=== PATIENT | male | born 1985 ===

== ENCOUNTER 2020-08-29 11:21 | Outpatient (REF) | payer OTHER, SELFPAY ==
[2020-08-29 11:52] LABS: COVID-19 Test Negative (Negative)
== END 2020-08-29 11:22 | disposition home or self-care (01) ==
LOC: HO.LAB 11:21
PROVIDERS: PCP Internal Medicine; Visit Provider Internal Medicine
DX: Z20.828 Contact with and (suspected) exposure to other viral communicable diseases (principal)
CPT/HCPCS: 87635

== ENCOUNTER 2020-10-06 15:26 | Emergency (ER) | payer OTHER, MEDICAID, SELFPAY ==
--- NOTE | 2020-10-06 | US_ITS ---
EXAMINATION: US SCROTUM See ultrasound scrotum Doppler report
[2020-10-06 16:01] VITALS: BP 147/87; PULSE 92; RESP 18; TEMP 36.9; O2SAT 98; BMI 27.8
--- NOTE | 2020-10-06 16:15 | CT_ITS ---
EXAMINATION: CT ABDOMEN AND PELVIS WITHOUT CONTRAST CLINICAL INFORMATION: Right-sided abdominal and testicular pain COMPARISON: None TECHNIQUE: Multidetector volumetric imaging was performed from the superior aspect of the liver through the pubic symphysis. Sagittal and coronal reformatted images were obtained on the technologist's workstation. This CT examination was performed using dose optimization techniques as appropriate, variously including the following: *Automated exposure control *Adjustment of mA and/or kV according to patient size (this includes techniques or standardized protocols for targeted exams where dose is matched to indication/reason for exam; i.e. extremities or head) *Use of iterative reconstruction technique DLP: 581 mGy-cm FINDINGS: LUNG BASES: The visualized lung bases are unremarkable. LIVER, GALLBLADDER, AND BILIARY TREE: The liver is normal in size, shape, and attenuation. No focal hepatic lesion or biliary ductal dilatation is present. The gallbladder is unremarkable with no evidence of radiopaque gallstones, gallbladder wall thickening, or obvious pericholecystic inflammatory changes. PANCREAS: Unremarkable. SPLEEN: Unremarkable. ADRENAL GLANDS: Unremarkable. KIDNEYS AND URETERS: The kidneys are normal in size, shape, and attenuation. No hydronephrosis, hydroureter, or calculi seen. No perinephric stranding. BLADDER: Unremarkable. GASTROINTESTINAL TRACT: There is diverticulosis of the colon. No evidence of diverticulitis is seen. The small and large bowel are otherwise unremarkable. The appendix is unremarkable. ABDOMINAL WALL: No significant hernia is appreciated. LYMPH NODES: Normal. VASCULAR: Unremarkable. PELVIC VISCERA: Unremarkable. OSSEOUS STRUCTURES: Unremarkable. CT/CT abdomen pelvis wo con IMPRESSION: No significant abnormality.
--- NOTE | 2020-10-06 16:15 | US_ITS ---
EXAMINATION: US SCROTUM CLINICAL INFORMATION: Right testicular pain. Rule out torsion.. COMPARISON: CT abdomen pelvis same day. TECHNIQUE: A sonogram of the scrotum was performed assessing kimbrough-scale appearance and color Doppler flow. Spectral Doppler analysis of the arterial and venous flow were performed in the testes bilaterally. FINDINGS: RIGHT: Right testicle measures 4.4 x 2.2 x 3.3 cm, volume 17 mL. No focal testicular parenchymal lesions are visualized. Spectral Doppler analysis of the arterial and venous flow is normal in the right testis. Right epididymal head is normal in size. No right hydrocele or varicocele is seen. Right epididymal Doppler flow is normal. LEFT: Left testicle measures 4.4 x 2.0 x 3.2 cm, volume 15 mL. No focal testicular parenchymal lesions are visualized. Spectral Doppler analysis of the arterial and venous flow is normal in the left testis. Left epididymal head is normal in size. No left hydrocele or varicocele is seen. Left epididymal Doppler flow is normal. US/US scrotum doppler IMPRESSION: Symmetrically sized testicles demonstrating normal arterial and venous waveforms.
--- NOTE | 2020-10-06 16:18 | ED.MALEGU ---
HPI - Male Genitourinary General Chief complaint: Urogenital-Male Stated complaint: testicular pain Time Seen by Provider: 10/06/20 16:15 Source: patient and contact center associate Mode of arrival: ambulatory Limitations: no limitations History of Present Illness HPI Narrative: a 35-year-old male who presented to the hospital with right testicular pain started since yesterday, patient declined any trauma, pain started yesterday as right lower back pain radiating to the right groin area and going down to the right thigh, described the pain as severe 10/10, dull, worsening with movement of the right leg or the body drunk, relieved by nothing, pain was radiating as described to right testicle and right thigh, no other associated symptoms in particular no nausea, no vomiting, no fever. Related Data Allergies Allergy/AdvReac Type Severity Reaction Status Date / Time No Known Allergies Allergy Unverified 08/03/20 19:44 [No Known Allergies*] Review of Systems Review of Systems: All other systems are reviewed and are negative Constitutional: Reports as per HPI and Reports no additional constitutional complaints Eyes: Reports as per HPI and Reports no additional eye complaints Reports system reviewed and no additional complaints, except as documented Cardiovascular: Reports as per HPI and Reports no additional cardiovascular complaints Respiratory: Reports as per HPI and Reports no additional respiratory complaints Gastrointestinal: Reports as per HPI and Reports no additional gastrointestinal complaints Genitourinary: Reports no additional female genitourinary complaints Musculoskeletal: Reports no additional musculoskeletal complaints Skin/Breast: Reports system reviewed and no additional complaints, except as docu Psychiatric: Reports no additional psychiatric complaints Endocrine: Reports no additional endocrine complaints Hematologic/Lymphatic: Reports no additional hematologic/lymphatic complaints Allergic/Immunologic: Reports no additional allergic/immunologic complaints Reports system reviewed and no additional complaints, except as documented and Reports Abnormal speech present Yes all other systems are reviewed and are negative, unobtainable due to endotracheal tube, Unobtainable due to mental condition, Unobtainable due to mental status and Other PMFSH Past Medical History Medical History No known health problems Social History Social History Alcohol intake: never Smoking Status: Former smoker Use of substances other than those prescribed or required for medical reasons: No Advance Directives: No Advance Directives Information Provided: Yes Physical Exam Vital Signs: Vital Signs: Last Vital Signs Temp 98.2 F 10/06/20 17: Pulse 100 10/06/20 17:01 Resp 18 10/06/20 17: BP 127/77 10/06/20 17:01 Pulse Ox 97 10/06/20 17:01 Body Mass Index 27.8 vital signs have been reviewed as normal and appeared to be correct. Blood pressure in the high range. Heart rate normal. Respiration rate normal. Temperature normal. Oxygen saturation normal. Appearance: Alert. Oriented X3. No acute distress. Head: Normal external exam. Normocephalic. Atraumatic. No Tamayo signs noted. No raccoon eyes noted Eyes: PERRLA. EOMI. Conjunctiva and sclera normal. Eyelids normal. ENT: EAC normal. TM's Normal. Pharynx normal. Uvula midline. Moist mucous membranes. No trismus noted. No drooling noted. No muffled voice noted. Neck: Normal inspection. Neck supple. FROM. No adenopathy. Thyroid Normal. No meningeal signs. No neck mass noted. CVS: Normal heart rate and rhythm. Heart sound normal. No murmurs noted. Pulses normal throughout. Respiratory: No respiratory distress. Painless inspiration. Breath sounds normal. No wheezes/rales/rhonchi noted. Chest nontender. No accessory muscle usage noted or decreased air movement noted. Abdomen: Soft and nontender. Bowel sounds normal in all 4 quadrants. No distention noted. No organomegaly noted. No visible injury noted. Back: Right CVA tenderness. Full range of motion noted. Skin: Skin warm and dry. Normal skin color. Normal skin turgor. No rashes/lesions/lacerations noted. Extremities: No lower extremity edema. Extremities exhibit normal range of motion. Extremities nontender. Neuro: Oriented X 3. No motor deficit. No sensory deficit. Reflexes normal. : Scrotum is normal inspection, testicle both descended, positive cremaster reflex, no testicular masses. No redness or hotness over the scrotum. MDM - Male Genitourinary MDM Narrative Medical decision making narrative: Assessment and plan. 35-year-old male presented with right-sided lower abdominal pain/right-sided testicular pain, patient not sexually active and declined risk for STDs, patient also declined UTI symptoms, no penile discharge, labs were unremarkable today including UA and CBC, patient had a CT of the abdomen and pelvis to rule out right kidney stones which is negative for kidney stones, right testicular ultrasound is negative for testicular torsion or any other scrotal pathology. This point finding were discussed with the patient and was instructed to take ibuprofen OTC, and follow up with PCP, patient was instructed to return if pain recurrent or any other symptoms like fever or chills. Patient has no pain after was given Toradol IV in the emergency department. Lab Data Result diagrams: 10/06/20 16:24 10/06/20 16:24 Labs: Lab Results 10/06/20 10/06/20 10/06/20 Range/Units 16:24 16:24 18:22 WBC 9.7 (4.8-10.8) X10*3/uL RBC 4.78 (4.60-5.80) X10*6/uL Hgb 14.2 (14.0-18.0) g/dl Hct 42.1 (42-52) % MCV 88.1 (80-98) fL MCH 29.7 (27.0-33.0) pg MCHC 33.7 (31.0-36.0) g/dl RDW 12.6 (11.0-16.0) % Plt Count 397 (160-400) X10*3/uL MPV 9.3 L (9.4-12.4) fL Immature Gran % (Auto) 0.2 (0.0-0.4) % Neut % (Auto) 65.2 (45-73) % Lymph % (Auto) 26.4 (20-40) % [place] % (Auto) 7.7 (2-11) % Eos % (Auto) 0.3 (0-4) % Baso % (Auto) 0.2 (0-2) % Lymph # (Auto) 2.6 (1.2-4.9) X10*3/uL [place] # (Auto) 0.7 (0.1-1.2) X10*3/uL Eos # (Auto) 0.0 (0.0-0.4) X10*3/uL Baso # (Auto) 0.0 (0.0-0.2) X10*3/uL Abs Immat Gran (auto) 0.02 (0.00-0.03) X10*3/uL Absolute Neuts (auto) 6.3 (2.0-8.3) X10*3/uL Absolute Nucleated RBC 0.000 (0.0-0.012) X10*3/uL Nucleated RBC % (auto) 0.0 (0.0-0.2) /100WBC Sodium 137 (135-145) mmol/L Potassium 4.2 (3.3-5.1) mmol/l Chloride 101 (96-108) mmol/L Carbon Dioxide 24 (22-29) mmol/L Anion Gap 16 (12-20) BUN 16 (9-16) mg/dL Creatinine 1.03 (0.5-1.4) mg/dL Estim Creat Clear Calc 106.1 Estimated GFR > 60 Random Glucose 80 (60-115) mg/dL Calcium 9.3 (8.4-10.2) mg/dL Total Bilirubin 0.6 (0.0-1.0) mg/dL Direct Bilirubin 0.2 (0.0-0.5) mg/dL AST 27 (5-37) U/L ALT 46 H (0-40) U/L Alkaline Phosphatase 63 (39-117) U/L Total Protein 7.7 (6.5-8.0) g/dL Albumin 4.9 (3.5-5.0) g/dL Lipase 38 (8-78) U/L Urine Color YELLOW Urine Appearance CLEAR Urine pH 6.0 (5.0-8.0) Ur Specific [place] 1.025 (1.005-1.025) Urine Protein NEG (NEG-TRACE) MG/DL Urine Glucose (UA) NEG (NEG) MG/DL Urine Ketones 5 (NEG) MG/DL Urine Blood NEG (NEG) Urine Nitrite NEG (NEG) Ur Leukocyte Esterase NEG (NEG) Imaging Data CT scan - abdomen: Radiologist's impression: Unremarkable study. Testicular ultrasound: Radiologist's impression: Unremarkable scrotal ultrasound.
[2020-10-06 16:30] LABS: MANUAL DIFF FLAG NO
[2020-10-06 16:31] LABS: Basophils Percent Auto 0.2 % (0-2); Eosinophils Percent Auto 0.3 % (0-4); Hematocrit 42.1 % (42-52); Hemoglobin 14.2 g/dl (14.0-18.0); Imm Gran Abs Auto 0.02 X10*3/uL (0.00-0.03); Imm Gran Pct Auto 0.2 % (0.0-0.4); Lymphocytes Absolute Auto 2.6 X10*3/uL (1.2-4.9); Lymphocytes Percent Auto 26.4 % (20-40); Mean Corpuscular HGB Conc 33.7 g/dl (31.0-36.0); Mean Corpuscular Hemoglobin 29.7 pg (27.0-33.0); Mean Corpuscular Volume 88.1 fL (80-98); Mean Platelet Volume 9.3 fL (9.4-12.4); Monocytes Absolute Auto 0.7 X10*3/uL (0.1-1.2); Monocytes Percent Auto 7.7 % (2-11); Neutrophils Absolute Auto 6.3 X10*3/uL (2.0-8.3); Neutrophils Percent Auto 65.2 % (45-73); Platelet Count 397 X10*3/uL (160-400); Red Blood Count 4.78 X10*6/uL (4.60-5.80); Red Cell Distribution Width 12.6 % (11.0-16.0); White Blood Count 9.7 X10*3/uL (4.8-10.8)
[2020-10-06] MEDS: Ketorolac Tromethamine 15 MG/ML VIAL IV (16:31)
[2020-10-06] MEDS: 0.9 % Sodium Chloride 500 ML 1000 ML IV (16:31)
[2020-10-06] MEDS: Morphine Sulfate 2 MG/ML CARTRIDGE 1 MG IVPUSH (16:31)
[2020-10-06 17:01] VITALS: BP 127/77; PULSE 100; RESP 18; TEMP 36.8; O2SAT 97
[2020-10-06 17:06] LABS: Alanine Aminotransferase 46 U/L (0-40); Albumin Level 4.9 g/dL (3.5-5.0); Alkaline Phosphatase 63 U/L (39-117); Anion Gap 16 (12-20); Aspartate Amino Transferase 27 U/L (5-37); Bilirubin Direct 0.2 mg/dL (0.0-0.5); Bilirubin Total 0.6 mg/dL (0.0-1.0); Blood Urea Nitrogen 16 mg/dL (9-16); Calcium 9.3 mg/dL (8.4-10.2); Carbon Dioxide 24 mmol/L (22-29); Chloride 101 mmol/L (96-108); Creatinine Clr Calc Pharmacy 106.1; Estimated Glomerular Filt Rate > 60; Glucose Random 80 mg/dL (60-115); Lipase 38 U/L (8-78); Potassium 4.2 mmol/l (3.3-5.1); Sodium 137 mmol/L (135-145); Total Protein 7.7 g/dL (6.5-8.0)
[2020-10-06 18:33] LABS: Glucose Urine UA NEG (NEG); Leukocyte Esterase Urine NEG (NEG); Nitrite Urine NEG (NEG); Specific Gravity - Urine 1.025 (1.005-1.025); Urine Blood NEG (NEG); Urine Ketones 5 MG/DL (NEG); Urine Protein NEG (NEG-TRACE)
[2020-10-06 18:34] LABS: Appearance Urine CLEAR; Color Urine YELLOW
== END 2020-10-06 19:57 | disposition home or self-care (01) ==
PROVIDERS: Emergency Provider Emergency Medicine
DX: N50.819 Testicular pain, unspecified (principal); M54.5 Low back pain; R10.9 Unspecified abdominal pain; Z87.891 Personal history of nicotine dependence
CPT/HCPCS: 36415; 74176; 76870; 80048; 80076; 81003; 83690; 85025; 93975; 96374; 96375; 99283; 99284; J1885; J2270

== ENCOUNTER 2020-10-31 11:20 | Outpatient (REF) | payer OTHER, SELFPAY | END 2020-10-31 11:21 | disposition home or self-care (01) | LOC: HO.LAB 11:20 | PROVIDERS: Visit Provider Internal Medicine | DX: Z20.828 Contact with and (suspected) exposure to other viral communicable diseases (principal) | CPT/HCPCS: C9803; U0003 ==

== ENCOUNTER 2020-11-28 12:34 | Outpatient (REF) | payer OTHER, SELFPAY ==
[2020-11-28 12:58] LABS: COVID-19 Test Negative (Negative)
== END 2020-11-28 12:35 | disposition home or self-care (01) ==
LOC: HO.EMPCOV 12:34
PROVIDERS: Visit Provider Internal Medicine
DX: Z20.822 Contact with and (suspected) exposure to COVID-19 (principal)
CPT/HCPCS: 36415; 87635; C9803

== ENCOUNTER 2021-11-12 08:43 | Outpatient (REF) | payer OTHER, SELFPAY ==
[2021-11-12 10:07] LABS: MANUAL DIFF FLAG NO
[2021-11-12 10:13] LABS: Basophils Percent Auto 0.3 % (0-2); Eosinophils Absolute Auto 0.1 X10*3/uL (0.0-0.4); Eosinophils Percent Auto 1.1 % (0-4); Hematocrit 44.9 % (42.0-52.0); Hemoglobin 14.5 g/dl (14.0-18.0); Imm Gran Abs Auto 0.02 X10*3/uL (0.00-0.03); Imm Gran Pct Auto 0.3 % (0.0-0.4); Lymphocytes Absolute Auto 2.2 X10*3/uL (1.2-4.9); Lymphocytes Percent Auto 29.5 % (20-40); Mean Corpuscular HGB Conc 32.3 g/dl (31.0-36.0); Mean Corpuscular Hemoglobin 29.5 pg (27.0-33.0); Mean Corpuscular Volume 91.3 fL (80.0-98.0); Mean Platelet Volume 9.3 fL (9.4-12.4); Monocytes Absolute Auto 0.7 X10*3/uL (0.1-1.2); Monocytes Percent Auto 9.5 % (2-11); Neutrophils Absolute Auto 4.5 x10*3/uL (2.0-8.3); Neutrophils Percent Auto 59.3 % (45-73); Platelet Count 403 X10*3/uL (160-400); Red Blood Count 4.92 X10*6/uL (4.60-5.80); Red Cell Distribution Width 12.8 % (11.0-16.0); White Blood Count 7.6 X10*3/uL (4.8-10.8)
[2021-11-12 11:37] LABS: Alanine Aminotransferase 38 U/L (0-40); Albumin Level 4.8 g/dL (3.5-5.0); Alkaline Phosphatase 76 U/L (39-117); Anion Gap 11 (12-20); Aspartate Amino Transferase 25 U/L (5-37); Bilirubin Total 0.3 mg/dL (0.0-1.0); Blood Urea Nitrogen 12 mg/dL (9-16); Calcium 9.9 mg/dL (8.4-10.2); Carbon Dioxide 28 mmol/L (22-29); Chloride 105 mmol/L (96-108); Cholesterol 242 mg/dL; Estimated Glomerular Filt Rate > 60; Glucose Fasting 104 mg/dL (60-99); HDL Cholesterol 55 mg/dL; LDL Cholesterol Calculated 169 mg/dl; Potassium 4.9 mmol/L (3.3-5.1); Sodium 139 mmol/L (135-145); Total Protein 7.8 g/dL (6.5-8.0); Triglycerides 91 mg/dL
[2021-11-12 12:00] LABS: Thyroid Stimulating Hormone 1.38 uIU/mL (0.32-4.0)
[2021-11-13 10:17] LABS: H Pylori Breath Test Negative (Negative)
[2021-11-16 13:01] LABS: Vitamin D 25-OH, D2 <4 ng/mL; Vitamin D 25-OH, D3 17 ng/mL; Vitamin D 25-OH, Total 17 ng/mL (30-100)
== END 2021-11-12 08:44 | disposition home or self-care (01) ==
LOC: HO.LAB 08:43
PROVIDERS: Absent Provider Internal Medicine; PCP Internal Medicine; Visit Provider Nurse Practitioner Family
DX: R14.0 Abdominal distension (gaseous) (principal); K59.01 Slow transit constipation; K21.9 Gastro-esophageal reflux disease without esophagitis; E78.5 Hyperlipidemia, unspecified; E55.9 Vitamin D deficiency, unspecified; D64.9 Anemia, unspecified
CPT/HCPCS: 36415; 80053; 80061; 82306; 83013; 84443; 85025

== ENCOUNTER → 2022-02-20 13:58 | Outpatient (BNVA) | payer OTHER, SELFPAY | PROVIDERS: PCP Internal Medicine; Referring Provider Internal Medicine; Visit Provider Nurse Practitioner Family | DX: Z13.89 Encounter for screening for other disorder (principal) ==

== ENCOUNTER 2022-06-25 09:29 | Day surgery (SDC) | payer OTHER, SELFPAY ==
[2022-06-20 09:22] VITALS: BMI 25.9
--- NOTE | 2022-06-24 10:18 | HO.ANESPROP2 ---
Documented by User: Carrie Woodard NP 06/24/22 10:18 HPI - Anesthesia Eval Consult details Narrative: 36yo M for Upper Endoscopy and Colonoscopy [facility] Active Problems Active Problems: All Active Problems (Updated 11/28/21 @ 17:20 by Preeti Acosta MD) Dizziness (Acute) Hypovitaminosis D (Acute) Abdominal bloating (Acute) Dyslipidemia (Acute) Constipation by delayed colonic transit (Acute) Past Medical History Medical History Abdominal bloating Constipation by delayed colonic transit COVID-19 Dizziness Dyslipidemia Hypovitaminosis D Family History Family History Father Diabetes Hypertension Mother Hypertension Diabetes Paternal Grandfather Lung cancer Colon cancer Surgical History Surgical History History of esophagogastroduodenoscopy (EGD) History of umbilical hernia repair Social History Social History Housing: House Alcohol intake: never Patient Tobacco Use Status: Never used Tobacco Tobacco use type: Cigarette Cigarette Packs Per Day: 2 e-Cigarette/Vaping Use: Never Used Second Hand Smoke Exposure: No Use of substances other than those prescribed or required for medical reasons: Yes Substance Use Frequency: Occasionally Are you DNR?: No Advance Directives: No Advance Directives Information Provided: Yes service: No Current occupational status: employed Current occupational exposures/hazards: No Meds Allergies Allergy/AdvReac Type Severity Reaction Status Date / Time No Known Allergies Allergy Verified 02/20/22 14:03 [No Known Allergies*] Exam Exam Date and Time: June 24, 2022 1018 Height,Weight and Vital Signs: Height 5 ft 8 in Weight 77.564 kg Assessment and Plan Assessment Anesthesia Assessment: Chart Reviewed Documented by User: Victorina Gallegos MD 06/25/22 10:04 [facility] Past Medical History Medical History Abdominal bloating Constipation by delayed colonic transit COVID-19 Dizziness Dyslipidemia Hypovitaminosis D Family History Family History Father Diabetes Hypertension Mother Hypertension Diabetes Paternal Grandfather Lung cancer Colon cancer Surgical History Surgical History History of esophagogastroduodenoscopy (EGD) History of umbilical hernia repair History of Problems with Anesthesia: No Social History Social History Housing: House Alcohol intake: never Patient Tobacco Use Status: Never used Tobacco Tobacco use type: Cigarette Cigarette Packs Per Day: 2 e-Cigarette/Vaping Use: Never Used Second Hand Smoke Exposure: No Use of substances other than those prescribed or required for medical reasons: Yes Substance Use Frequency: Occasionally Are you DNR?: No Advance Directives: No Advance Directives Information Provided: Yes service: No Current occupational status: employed Current occupational exposures/hazards: No Meds Allergies Allergy/AdvReac Type Severity Reaction Status Date / Time No Known Allergies Allergy Verified 02/20/22 14:03 [No Known Allergies*] Exam Airway Mallampati Class: II TM Dist: >3cm Neck ROM: Full Loose/Missing/Broken Teeth: No Heart: RRR Lungs: CTA Assessment and Plan Assessment Anesthesia Assessment: Anesthesia Plan Discussed Final Anesthetic Review History of Problems with Anesthesia: No NPO: Yes ASA Class: II Final Preanesthetic Review: Meds/Allgs Chart Reviewed, Consent Obtained/Reviewed and Anes Risks/Benef Reviewed Patient Risk: Low Procedure Risk: Intermediate Anesthetic Plan Anesthetic Plan: MAC: Disposition: Standard PACU
[2022-06-25] VITALS (9 sets, daily range): BP systolic 108–123; BP diastolic 55–88; PULSE 98–124; RESP 16–28; TEMP 36.4–37.1; O2SAT 93–100
--- NOTE | ~2022-06-25 | XR_ITS ---
EXAMINATION: XR CHEST CLINICAL INFORMATION: Possible aspiration. COMPARISON: 02/23/2020 chest radiograph. TECHNIQUE: Frontal view of the chest was obtained. FINDINGS: No significant abnormality is noted involving the heart, lungs, mediastinum, bony thorax or soft tissues. XR/XR chest 1V IMPRESSION: No acute cardiopulmonary process.
--- NOTE | 2022-06-25 09:49 | MHC.SHP ---
Pre-Procedural Eval Section A Date of Service: 06/25/22 Section B Chief Complaint: IBS,reflux disease Details of Present Illness: rectal bleeding Relevant Family History (Specify if Yes): No Relevant Social History: Tobacco Use Present Medications: see Short Stay Collaborative assessment Medical History: Significant History (Abdominal bloating Constipation by delayed colonic transit COVID-19 Dizziness Dyslipidemia Hypovitaminosis D) History of Previous Operations: Relevant previous surgery/procedure and date(s) (egd, umbilical hernia repair) Allergies: Allergies Allergy/AdvReac Type Severity Reaction Status Date / Time No Known Allergies Allergy Verified 02/20/22 14:03 [No Known Allergies*] Review of Systems Sugical H&P ROS: Negative: Constitution, Cardiovascular, Respiratory, Neurological, Psychiatric, Hem-Onc, Allergic/Immunologic, Gastrointestinal, Genitourinary, Musculoskeletal, Integumentary, Endocrine and Eyes/Ears/Nose/Throat Exam Surgical H&P Exam: Normal: HEENT, Normal: Heart, Normal: Lungs, Normal: Extremities, Normal: Abdomen, Normal: Skin and Normal: Neurological Plan Diagnosis/Plan: Unchanged I have reviewed the history and physical and performed a pertinent physical examination on my patient. No changes have occurred unless specified.
--- NOTE | 2022-06-25 10:42 | P.OP_ITS ---
Operative Note Operative Note Date of Service: 06/25/22 Narrative: Operative Information Procedure Description: EGD, Colonoscopy Indication: rectal bleeding, abdominal pain Anesthesia: MAC FLEXIBLE TRANSORAL UPPER GASTROINTESTINAL ENDOSCOPY AND COLONOSCOPY PROCEDURE NOTE UPPER ENDOSCOPY Consent: Indications for the procedure and potential complications of bleeding, perforation, reaction to medications and missed diagnosis were discussed with the patient and informed consent was obtained. Instrument: Olympus GIF H 190 J mid size upper endoscope Monitoring: Vital signs and clinical assessment, continuous EKG monitoring, Pulse oximetry, Carbon Dioxide monitoring and blood pressure monitoring were done throughout the procedure. Procedure: The patient was placed in the left lateral decubitis position and pre-procedure medications were administered and a bite block was placed. The endoscope was inserted into the mouth and advanced under direct vision to the third part of duodenum. A careful inspection was made as the upper endoscope was withdrawn including a retroflexed examination of the proximal stomach; Findings and interventions are described below. Findings: Larynx:normal Esophagus: GE junction at 40 cm, diaphragm hiatus at 40 cm, bogginess, and edema with erythema, consistent with LA grade A esophagitis, bx taken. One area kept oozing so x 1 clip applied for hemostasis. Possible one small varix vs prominent fold. Stomach: Patchy nodularity and eruthema. Biopsies were obtained. Grade 2 flap valve on retroflexed examination of the cardia. Duodenum: Mild bulbar duodenitis , bx taken Intervention: Biopsies as noted above COLONOSCOPY Instrument: Olympus variable stiffness pediatric scope 190L Colonoscopy Monitoring: Vital signs and clinical assessment, continuous EKG monitoring, Pulse oximetry, Carbon Dioxide monitoring and blood pressure monitoring were done throughout the procedure. Colon withdrawal time was 10 minutes. Procedure: The patient was placed in the left lateral decubitis position and pre-procedure medications were administered. After a digital rectal examination of the ano-rectum, the video colonoscope was inserted into the rectum and advanced through the colon to the cecum/TI. The colonoscope was slowly withdrawn in a retrograde panoramic fashion and the colon mucosa was carefully examined including a retroflexed view of the rectum. Findings and interventions are described below. Procedure Difficulty: Findings: Terminal Ileum-normal Right sided retroflexion was normal Cecum:normal Ascending Colon: normal Transverse Colon -normal Descending Colon:normal Sigmoid Colon: normal Rectum: Retroflexion with small internal hemorrhoids, grade I Anorectum - normal Colon preparation: [place] Bowel Preparation Scale Right colon; 3 Transverse colon: 3 Left colon; 3 (0 = Unprepared colon segment with mucosa not seen due to solid stool that cannot be cleared. 1 = Portion of mucosa of the colon segment seen, but other areas of the colon segment not well seen due to staining, residual stool and/or opaque liquid. 2 = Minor amount of residual staining, small fragments of stool and/or opaque liquid, but mucosa of colon segment seen well. 3 = Entire mucosa of colon segment seen well with no residual staining, small fragments of stool or opaque liquid) Impression and Post Procedure Diagnosis: Endoscopy Findings: gastritis esophagitis Colonoscopy Findings: internal hemorrhoids Plan: Await Pathology results Repeat Colonoscopy in 10 years or earlier if clinically indicated High fiber diet leaflet avoid straining at stool, epsom salts and sitz bath, anusol supps or cream If H pylori pos then treat check PPI compliance check nsaid and smoking history Above findings were reviewed with the patient and relevant handouts were provided if indicated.
== END 2022-06-25 13:17 | disposition home or self-care (01) ==
PROVIDERS: PCP Internal Medicine; Visit Provider Internal Medicine Gastroenterology
PROC: (CPT 45378; principal; 2022-06-25 10:40)
DX: K62.5 Hemorrhage of anus and rectum (principal); K64.0 First degree hemorrhoids; K58.1 Irritable bowel syndrome with constipation; K29.70 Gastritis, unspecified, without bleeding; K21.00 Gastro-esophageal reflux disease with esophagitis, without bleeding; K29.80 Duodenitis without bleeding; K44.9 Diaphragmatic hernia without obstruction or gangrene; E55.9 Vitamin D deficiency, unspecified; E78.5 Hyperlipidemia, unspecified; F17.210 Nicotine dependence, cigarettes, uncomplicated; Z86.16 Personal history of COVID-19
CPT/HCPCS: 45378; 43239; 71045; 88305; 88342; J2250

== ENCOUNTER → 2022-07-15 14:12 | Outpatient (BNVA) | payer OTHER, SELFPAY | PROVIDERS: PCP Internal Medicine; Visit Provider Internal Medicine Gastroenterology | DX: Z13.89 Encounter for screening for other disorder (principal) ==

== ENCOUNTER 2022-07-15 16:21 | Outpatient (REF) | payer OTHER, SELFPAY ==
[2022-07-16 11:27] LABS: H Pylori Breath Test Negative (Negative)
== END 2022-07-15 16:22 | disposition home or self-care (01) ==
LOC: HO.LNP 16:21
PROVIDERS: Visit Provider Internal Medicine Gastroenterology
DX: K59.01 Slow transit constipation (principal)
CPT/HCPCS: 83013

== ENCOUNTER 2022-08-01 09:00 | Outpatient (REF) | payer OTHER, SELFPAY ==
--- NOTE | ~2022-08-01 | XR_ITS ---
EXAMINATION: XR CHEST CLINICAL INFORMATION: Dyspnea COMPARISON: None TECHNIQUE: 2 views of the chest were obtained. FINDINGS: The lungs are well-expanded and clear of acute process. Heart size and pulmonary vascularity is normal. No gross bony abnormality seen. XR/XR chest 2V IMPRESSION: Unremarkable chest exam.
--- NOTE | 2022-08-01 13:12 | PFT_ITS ---
Forced vital capacity 92%. FEV1 101%, FEV1/ FVC ratio is 89. [id number] 125%. MVV 113%. Post bronchodilator therapy, there is no significant change. Total lung capacity 100% and residual volume 98%. Diffusion capacity 103%. CONCLUSION: Normal pulmonary function test. There is no evidence of obstructive or restrictive pulmonary disorder. MD RAOUL Seasy/BIGGL / [id number]
== END 2022-08-01 09:01 | disposition home or self-care (01) ==
LOC: HO.RESP 09:00
PROVIDERS: PCP Internal Medicine; Visit Provider Internal Medicine
DX: R06.09 Other forms of dyspnea (principal); U09.9 Post COVID-19 condition, unspecified
CPT/HCPCS: 71046; 94060; 94727; 94729

== ENCOUNTER 2022-08-21 11:03 | Outpatient (REF) | payer OTHER, SELFPAY ==
[2022-08-21 11:50] LABS: MANUAL DIFF FLAG NO
[2022-08-21 12:09] LABS: Basophils Percent Auto 0.2 % (0-2); Eosinophils Absolute Auto 0.1 X10*3/uL (0.0-0.4); Hematocrit 44.1 % (42.0-52.0); Hemoglobin 14.7 g/dl (14.0-18.0); Imm Gran Abs Auto 0.02 X10*3/uL (0.00-0.03); Imm Gran Pct Auto 0.2 % (0.0-0.4); Lymphocytes Absolute Auto 2.9 X10*3/uL (1.2-4.9); Lymphocytes Percent Auto 32.3 % (20-40); Mean Corpuscular HGB Conc 33.3 g/dl (31.0-36.0); Mean Corpuscular Hemoglobin 29.3 pg (27.0-33.0); Mean Corpuscular Volume 87.8 fL (80.0-98.0); Mean Platelet Volume 9.4 fL (9.4-12.4); Monocytes Absolute Auto 0.5 X10*3/uL (0.1-1.2); Monocytes Percent Auto 5.8 % (2-11); Neutrophils Absolute Auto 5.5 x10*3/uL (2.0-8.3); Neutrophils Percent Auto 60.5 % (45-73); Platelet Count 457 X10*3/uL (160-400); Red Blood Count 5.02 X10*6/uL (4.60-5.80); Red Cell Distribution Width 12.9 % (11.0-16.0); White Blood Count 9.1 X10*3/uL (4.8-10.8)
[2022-08-21 12:32] LABS: Alanine Aminotransferase 58 U/L (0-40); Albumin Level 4.7 g/dL (3.5-5.0); Alkaline Phosphatase 69 U/L (39-117); Anion Gap 15 (12-20); Aspartate Amino Transferase 33 U/L (5-37); Bilirubin Total 0.6 mg/dL (0.0-1.0); Blood Urea Nitrogen 12 mg/dL (9-16); Carbon Dioxide 26 mmol/L (22-29); Chloride 104 mmol/L (96-108); Cholesterol 271 mg/dL; Estimated Glomerular Filt Rate > 60; Glucose Fasting 88 mg/dL (60-99); HDL Cholesterol 50 mg/dL; LDL Cholesterol Calculated 205 mg/dl; Potassium 4.5 mmol/L (3.3-5.1); Sodium 140 mmol/L (135-145); Total Protein 7.7 g/dL (6.5-8.0); Triglycerides 80 mg/dL
== END 2022-08-21 11:04 | disposition home or self-care (01) ==
LOC: HO.LAB 11:03
PROVIDERS: PCP Internal Medicine; Visit Provider Internal Medicine
DX: Z00.00 Encounter for general adult medical examination without abnormal findings (principal); R06.02 Shortness of breath; E78.5 Hyperlipidemia, unspecified
CPT/HCPCS: 36415; 80053; 80061; 85025

== ENCOUNTER 2022-09-26 12:35 | Emergency (ER) | payer OTHER, SELFPAY ==
--- NOTE | ~2022-09-26 | CT_ITS ---
EXAMINATION: CT ABDOMEN AND PELVIS WITHOUT CONTRAST CLINICAL INFORMATION: Left lower quadrant pain. COMPARISON: CT scan of the abdomen and pelvis dated 10/06/2020. TECHNIQUE: Multidetector volumetric imaging was performed from the superior aspect of the liver through the pubic symphysis. Sagittal and coronal reformatted images were obtained on the technologist's workstation. Lack of intravenous and oral contrast limits visceral evaluation. Mild respiratory motion artifact also limits. This CT examination was performed using dose optimization techniques as appropriate, variously including the following: *Automated exposure control *Adjustment of mA and/or kV according to patient size (this includes techniques or standardized protocols for targeted exams where dose is matched to indication/reason for exam; i.e. extremities or head) *Use of iterative reconstruction technique DLP: 567 mGy-cm FINDINGS: LUNG BASES: An ovoid subpleural nodule seen in the left lower lobe measuring 1.6 cm (image 10, series 2). No pleural or pericardial effusions. LIVER, GALLBLADDER, AND BILIARY TREE: Unremarkable. PANCREAS: Unremarkable. SPLEEN: Unremarkable. ADRENAL GLANDS: Unremarkable. KIDNEYS AND URETERS: Mild left pelvicaliectasis is seen with minimal perinephric stranding. No significant left ureterectasis. No nephrolithiasis bilaterally. No significant right renal/ureteral abnormality. BLADDER: 0.3 cm calculus at or just distal to the left ureterovesical junction (image 655, series 4). No focal mural abnormality. GASTROINTESTINAL TRACT: The stomach, small bowel and appendix are unremarkable. The colon and rectum are unremarkable. ABDOMINAL WALL: Very small fat-containing umbilical hernia. Small bilateral fat-containing inguinal hernias. LYMPH NODES: No lymphadenopathy. VASCULAR: Unremarkable. PELVIC VISCERA: Mild prostatic enlargement with mild coarse central calcifications. OSSEOUS STRUCTURES: Unremarkable. CT/CT abdomen pelvis wo IV con IMPRESSION: 1. Mild left renal pelvicaliectasis likely residual from a recently passed left ureteral calculus now seen at or just distal to the left ureterovesical junction. 2. New 1.2 cm nodule in the left lower lobe. This was not seen on the 2019 study. Given the patient's age, this is nonspecific, but malignancy cannot be completely excluded. A dedicated chest CT scan is recommended to assess the remainder of the chest.
--- NOTE | ~2022-09-26 | US_ITS ---
EXAMINATION: US SCROTUM CLINICAL INFORMATION: Left testicular pain. COMPARISON: Scrotal ultrasound 10/06/2020 TECHNIQUE: A sonogram of the scrotum was performed assessing kimbrough-scale appearance and color Doppler flow. Spectral Doppler analysis of the arterial and venous flow were performed in the testes bilaterally. FINDINGS: RIGHT: Right testicle measures 4.2 x 2.6 x 3.0 cm, volume 17.3 mL. No focal testicular parenchymal lesions are visualized. Spectral Doppler analysis of the arterial and venous flow is normal in the right testis. Right epididymal head is normal in size. No right hydrocele or varicocele is seen. Right epididymal Doppler flow is normal. LEFT: Left testicle measures 4.4 x 2.4 x 3.1 cm, volume 17.0 mL. No focal testicular parenchymal lesions are visualized. Spectral Doppler analysis of the arterial and venous flow is slightly increased when compared to the right testis. Left epididymis is mildly enlarged when compared to the right and slightly more vascular.. No left hydrocele or varicocele is seen. US/US scrotum IMPRESSION: Slightly increased vascular flow in the left testicle and mildly enlarged left epididymis. The findings raise the question of epididymoorchitis.
--- NOTE | ~2022-09-26 | US_ITS ---
EXAMINATION: US SCROTUM CLINICAL INFORMATION: Left testicular pain. COMPARISON: Scrotal ultrasound 10/06/2020 TECHNIQUE: A sonogram of the scrotum was performed assessing kimbrough-scale appearance and color Doppler flow. Spectral Doppler analysis of the arterial and venous flow were performed in the testes bilaterally. FINDINGS: RIGHT: Right testicle measures 4.2 x 2.6 x 3.0 cm, volume 17.3 mL. No focal testicular parenchymal lesions are visualized. Spectral Doppler analysis of the arterial and venous flow is normal in the right testis. Right epididymal head is normal in size. No right hydrocele or varicocele is seen. Right epididymal Doppler flow is normal. LEFT: Left testicle measures 4.4 x 2.4 x 3.1 cm, volume 17.0 mL. No focal testicular parenchymal lesions are visualized. Spectral Doppler analysis of the arterial and venous flow is slightly increased when compared to the right testis. Left epididymis is mildly enlarged when compared to the right and slightly more vascular.. No left hydrocele or varicocele is seen. US/US scrotum doppler IMPRESSION: Slightly increased vascular flow in the left testicle and mildly enlarged left epididymis. The findings raise the question of epididymoorchitis.
[2022-09-26 13:19] VITALS: BP 137/96; PULSE 107; RESP 20; TEMP 36.7; O2SAT 100; BMI 25.8
--- NOTE | 2022-09-26 13:19 | ED.GENADULT ---
HPI - General Adult General Chief complaint: Abdominal Pain Stated complaint: back pain into L side. stones? Time Seen by Provider: 09/26/22 23:50 Related Data Previous Rx's Medication Instructions Recorded docusate sodium 100 mg capsule 100 mg PO DAILY #30 caps 07/24/22 hydrocortisone 2.5 % topical cream 1 appl UT BID-QID PRN hemorrhoids 07/24/22 with perineal applicator #30 grams (Proctosol HC) pantoprazole 40 mg tablet,delayed 40 mg PO DAILY #90 tabs 07/24/22 release albuterol sulfate 90 mcg/actuation 2 puff inhalation Q4-6H PRN 07/31/22 aerosol inhaler (ProAir HFA) shortness of breath or wheezing 30 days #6.7 grams levofloxacin 500 mg tablet 500 mg PO DAILY 10 days #10 tabs 09/27/22 Allergies Allergy/AdvReac Type Severity Reaction Status Date / Time No Known Allergies Allergy Verified 09/26/22 13:18 [No Known Allergies*] [facility] Past Medical History Medical History Abdominal bloating Constipation by delayed colonic transit COVID-19 Dizziness Dyslipidemia Dyspnea on exertion Hypovitaminosis D Post covid-19 condition, unspecified Surgical History History of esophagogastroduodenoscopy (EGD) History of umbilical hernia repair Family History Family History Father Diabetes Hypertension Mother Hypertension Diabetes Paternal Grandfather Lung cancer Colon cancer Social History Social History Housing: House Alcohol intake: never Patient Tobacco Use Status: Former Tobacco user Tobacco use type: Cigarette e-Cigarette/Vaping Use: Never Used Second Hand Smoke Exposure: No service: No Current occupational status: employed Current occupational exposures/hazards: No Cognitive needs: No Hearing needs: No Vision needs: No Physical Exam ED Vital Signs: Vital Signs - 24 hr 09/26/22 13:19 09/26/22 15:39 Temperature 98.1 F 97.9 F Pulse Rate 107 H 108 H Respiratory Rate 20 16 Blood Pressure 137/96 H 134/90 H Pulse Oximetry 100 97 Oxygen Delivery Method Room Air Room Air BMI result Body Mass Index 25.8 Course Course Course Narrative: RME-- 37yo M c/o L flank pain radiating to LLQ and testicle x this AM w/nausea. No hx stones. Labs, UA, CTAP and IVF, Zofran and Toradol ordered in triage -on re-vital pt c/o scrotal pain > US ordered. 1626--CT abdomen pelvis wo IV con IMPRESSION: 1. Mild left renal pelvicaliectasis likely residual from a recently passed left ureteral calculus now seen at or just distal to the left ureterovesical junction. 2. New 1.2 cm nodule in the left lower lobe. This was not seen on the 2020 study. Given the patient's age, this is nonspecific, but malignancy cannot be completely excluded. A dedicated chest CT scan is recommended to assess the remainder of the chest. >> chest CT w/IV con ordered Reevaluation(s) Reevaluation #1: 09/27/22--reviewed patient's results from yesterday, patient eloped prior to full ED evaluation. CT results as above. Additionally patient's scrotal ultrasound was suggestive of epididymo-orchitis. Called and spoke with patient with full time staff interpreter made aware of results, denies history of concern for STI, or new sexual partners, sent Levaquin 500 mg daily times 10 days to the pharmacy and provided patient with Urology phone number for close follow-up. Also discussed with patient that he likely passed a stone and the new findings of the left lower lobe nodule. Recommended urgent follow-up with his PCP for further studies and that this possibly could be malignancy however further testing needs to be done. Patient was given opportunity to ask questions, PCP is Dr. Murillo Time: 09:56 Medications Administered Discontinued Medications Generic Name Dose Route Start Last Admin Trade Name Freq PRN Reason Stop Dose Admin Acetaminophen 650 mg 09/26/22 13:30 09/26/22 13:33 Acetaminophen 325 Mg Tablet PO 09/26/22 13:31 650 mg ONCE ONE Administration Medical Decision Making Lab Data Result diagrams: 09/26/22 13:26 09/26/22 13:26 Labs: Lab Results 09/26/22 09/26/22 09/26/22 Range/Units 13:26 13: 13:26 WBC 14.8 H (4.8-10.8) X10*3/uL RBC 5.09 (4.60-5.80) X10*6/uL Hgb 14.8 (14.0-18.0) g/dl Hct 44.6 (42.0-52.0) % MCV 87.6 (80.0-98.0) fL MCH 29.1 (27.0-33.0) pg MCHC 33.2 (31.0-36.0) g/dl RDW 12.8 (11.0-16.0) % Plt Count 424 H (160-400) X10*3/uL MPV 8.9 L (9.4-12.4) fL Immature Gran % (Auto) 0.3 (0.0-0.4) % Neut % (Auto) 79.0 H (45-73) % Lymph % (Auto) 14.8 L (20-40) % [place] % (Auto) 5.4 (2-11) % Eos % (Auto) 0.3 (0-4) % Baso % (Auto) 0.2 (0-2) % Lymph # (Auto) 2.2 (1.2-4.9) X10*3/uL [place] # (Auto) 0.8 (0.1-1.2) X10*3/uL Eos # (Auto) 0.0 (0.0-0.4) X10*3/uL Baso # (Auto) 0.0 (0.0-0.2) X10*3/uL Abs Immat Gran (auto) 0.04 H (0.00-0.03) X10*3/uL Absolute Neuts (auto) 11.7 H (2.0-8.3) x10*3/uL Absolute Nucleated RBC 0.000 (0.0-0.012) X10*3/uL Nucleated RBC % (auto) 0.0 (0.0-0.2) /100WBC Sodium 140 (135-145) mmol/L Potassium 4.7 (3.3-5.1) mmol/L Chloride 103 (96-108) mmol/L Carbon Dioxide 24 (22-29) mmol/L Anion Gap 18 (12-20) BUN 12 (9-16) mg/dL Creatinine 1.19 (0.5-1.4) mg/dL Estim Creat Clear Calc 83.0 Estimated GFR > 60 Random Glucose 124 H (60-115) mg/dL Calcium 10.1 (8.4-10.2) mg/dL Total Bilirubin 0.5 (0.0-1.0) mg/dL Direct Bilirubin 0.2 (0.0-0.5) mg/dL AST 40 H (5-37) U/L ALT 66 H (0-40) U/L Alkaline Phosphatase 72 (39-117) U/L Total Protein 7.9 (6.5-8.0) g/dL Albumin 4.8 (3.5-5.0) g/dL Lipase 29 (8-78) U/L COVID-19 (KELLY) Negative (Negative) COVID-19 Clin Com See Note Discharge Plan Discharge Clinical Impression: Kidney stone, Acute epididymo-orchitis, Lung nodule Patient Disposition: Elopement Prescriptions: New levofloxacin 500 mg tablet 500 mg PO DAILY 10 Days Qty: 10 0RF No Action pantoprazole 40 mg tablet,delayed release (DR/EC) 40 mg PO DAILY Qty: 90 2RF Rx Instructions: take one tablet half an hour before breakfast hydrocortisone [Proctosol HC] 2.5 % cream with perineal applicator 1 appl UT BID-QID PRN (Reason: hemorrhoids) Qty: 30 2RF docusate sodium 100 mg capsule 100 mg PO DAILY Qty: 30 3RF albuterol sulfate [ProAir HFA] 90 mcg/actuation HFA aerosol inhaler 2 puff inhalation Q4-6H PRN (Reason: shortness of breath or wheezing) 30 Days Qty: 6.7 2RF Interventions: ED Discharge Assessment Last Done: 09/27/22 00:12 Discharge Date/Time: 09/27/22 00:12
[2022-09-26 13:32] LABS: MANUAL DIFF FLAG NO
[2022-09-26 13:33] LABS: Basophils Percent Auto 0.2 % (0-2); Eosinophils Percent Auto 0.3 % (0-4); Hematocrit 44.6 % (42.0-52.0); Hemoglobin 14.8 g/dl (14.0-18.0); Imm Gran Abs Auto 0.04 X10*3/uL (0.00-0.03); Imm Gran Pct Auto 0.3 % (0.0-0.4); Lymphocytes Absolute Auto 2.2 X10*3/uL (1.2-4.9); Lymphocytes Percent Auto 14.8 % (20-40); Mean Corpuscular HGB Conc 33.2 g/dl (31.0-36.0); Mean Corpuscular Hemoglobin 29.1 pg (27.0-33.0); Mean Corpuscular Volume 87.6 fL (80.0-98.0); Mean Platelet Volume 8.9 fL (9.4-12.4); Monocytes Absolute Auto 0.8 X10*3/uL (0.1-1.2); Monocytes Percent Auto 5.4 % (2-11); Neutrophils Absolute Auto 11.7 x10*3/uL (2.0-8.3); Platelet Count 424 X10*3/uL (160-400); Red Blood Count 5.09 X10*6/uL (4.60-5.80); Red Cell Distribution Width 12.8 % (11.0-16.0); White Blood Count 14.8 X10*3/uL (4.8-10.8)
[2022-09-26] MEDS: Acetaminophen 325 MG TABLET 650 MG PO (13:33)
--- NOTE | 2022-09-26 13:33 | PC.NURSE ---
pt medicated with tylenol per order
[2022-09-26 13:47] LABS: COVID-19 Test Negative (Negative)
[2022-09-26 13:59] LABS: Alanine Aminotransferase 66 U/L (0-40); Albumin Level 4.8 g/dL (3.5-5.0); Alkaline Phosphatase 72 U/L (39-117); Anion Gap 18 (12-20); Aspartate Amino Transferase 40 U/L (5-37); Bilirubin Direct 0.2 mg/dL (0.0-0.5); Bilirubin Total 0.5 mg/dL (0.0-1.0); Blood Urea Nitrogen 12 mg/dL (9-16); Calcium 10.1 mg/dL (8.4-10.2); Carbon Dioxide 24 mmol/L (22-29); Chloride 103 mmol/L (96-108); Estimated Glomerular Filt Rate > 60; Glucose Random 124 mg/dL (60-115); Potassium 4.7 mmol/L (3.3-5.1); Sodium 140 mmol/L (135-145); Total Protein 7.9 g/dL (6.5-8.0)
[2022-09-26 15:19] LABS: Lipase 29 U/L (8-78)
[2022-09-26 15:39] VITALS: BP 134/90; PULSE 108; RESP 16; TEMP 36.6; O2SAT 97
== END 2022-09-27 00:12 | disposition left against medical advice (07) ==
PROVIDERS: Physician Assistant; Emergency Provider Emergency Medicine; PCP Internal Medicine
DX: N20.0 Calculus of kidney (principal); N45.3 Epididymo-orchitis; R91.1 Solitary pulmonary nodule; Z20.822 Contact with and (suspected) exposure to COVID-19; Z79.899 Other long term (current) drug therapy
CPT/HCPCS: 74176; 76870; 80048; 80076; 83690; 85025; 87635; 93975; 99283; 99284

== ENCOUNTER 2022-10-08 14:35 | Outpatient (REF) | payer OTHER, SELFPAY ==
--- NOTE | ~2022-10-08 | CT_ITS ---
EXAMINATION: CT CHEST WITH CONTRAST CLINICAL INFORMATION: Dyspnea COMPARISON: Previous chest x-ray most recent July 2022 and lung windows from abdominal and pelvic CT scan 09/26/2022 and September 2020 TECHNIQUE: Multidetector volumetric CT imaging of the chest was obtained after the administration of 65 mL of Omnipaque 350 intravenous contrast without immediate adverse reactions. Axial MIP volume rendering provided. Sagittal and coronal reformatted images were obtained. This CT examination was performed using dose optimization techniques as appropriate, variously including the following: *Automated exposure control *Adjustment of mA and/or kV according to patient size (this includes techniques or standardized protocols for targeted exams where dose is matched to indication/reason for exam; i.e. extremities or head) *Use of iterative reconstruction technique DLP: 144 mGy-cm FINDINGS: COMMUNICATIONS BILLING ANALYST: Left base pulmonary nodule. LUNGS: There is a 2 mm right upper lobe nodule axial image 51 series 7. There is a 4 mm peripheral or subpleural left lower lobe nodule adjacent to the pleural fissure axial image 86 series 7. There is a 4 mm peripheral or subpleural right lower lobe nodule adjacent to the major fissure. Lateral 2 nodules probably representing peripheral or subpleural lymph nodes. There is a 5 mm right lower lobe nodule axial image 139 series 7. There is a 1.7 cm left lower lobe nodule axial image 130 series 7 MEDIASTINUM: There are small mediastinal lymph nodes. No enlarged hilar or mediastinal lymph nodes. There is a residual thymic tissue probably normal for the patient's age. Normal heart size. No pericardial effusion. No coronary artery calcification. Normal caliber thoracic aorta. PLEURA: There is no pleural effusion. No pleural mass or thickening. AXILLA: Small bilateral axillary lymph nodes. No enlarged lymph nodes seen. UPPER ABDOMEN: The liver is low in attenuation questionable for fatty infiltration. Images through the upper abdomen are otherwise unremarkable. OSSEOUS STRUCTURES: Unremarkable. CT/CT chest w IV con IMPRESSION: Bilateral pulmonary nodules, largest measuring 1.7 cm in the left lower lobe. PET/CT scan or tissue sampling should be considered. Fleischner guidelines were followed. Findings will be communicated by the [place] work flow mercerizer.
[2022-10-08 16:09] LABS: Blood Urea Nitrogen 13 mg/dL (9-16); Estimated Glomerular Filt Rate > 60
[2022-10-08] MEDS: iohexoL 350 MG/ML 100 ML INFUS..BTL IV (16:29)
== END 2022-10-08 14:36 | disposition home or self-care (01) ==
LOC: HO.CT 14:35
PROVIDERS: Absent Provider Internal Medicine; PCP Internal Medicine; Visit Provider Nurse Practitioner Family
DX: R06.09 Other forms of dyspnea (principal); R91.1 Solitary pulmonary nodule
CPT/HCPCS: 36415; 71260; 82565; 84520; Q9967

== ENCOUNTER → 2022-11-01 10:36 | Outpatient (BNVA) | payer OTHER, SELFPAY | PROVIDERS: PCP Internal Medicine; Visit Provider Surgery | DX: R91.1 Solitary pulmonary nodule (principal) | CPT/HCPCS: 99202 ==

== ENCOUNTER → 2022-12-13 14:38 | Outpatient (BNVA) | payer OTHER, SELFPAY | PROVIDERS: PCP Internal Medicine; Visit Provider Nurse Practitioner Family | DX: Z13.89 Encounter for screening for other disorder (principal) ==

== ENCOUNTER 2022-12-18 08:10 | Outpatient (REF) | payer OTHER, SELFPAY ==
--- NOTE | ~2022-12-18 | MM_ITS ---
EXAMINATION: MM DIAGNOSTIC DIGITAL BREAST TOMOSYNTHESIS, BILATERAL US DIAGNOSTIC ULTRASOUND BREAST, LEFT CLINICAL INFORMATION: 37-year-old male with left mastodynia. No discharge. No prior breast imaging. History excision benign nodule left lung base. Symptoms prior to surgery. COMPARISON: No prior breast imaging. (current study represents initial baseline exam). Comparison made with CT chest 10/08/2022. TECHNIQUE: Digital breast tomosynthesis is performed in both the craniocaudal and mediolateral oblique views along with computer-aided detection (CAD). Synthesized 2D images are generated from the tomosynthesis. Additional left CC view is provided. Ultrasound left breast and axillary is performed using grayscale imaging and color Doppler without and with harmonics. FINDINGS: There are scattered areas of fibroglandular density (ACR BI-RADS breast composition Category b). There is mild bilateral subareolar gynecomastia type pattern. No mass or architectural abnormality. No abnormal calcifications. No skin thickening or coarsening of the stromal markings. The axilla are unremarkable. Ultrasound demonstrates no cystic or solid mass, architectural abnormality, or focal duct ectasia. No adenopathy. No skin thickening or edema tracking in soft tissue planes. Results are discussed with the patient at time of visit, using an diesel powerplant supervisor. MM/MM tomosynthesis diagnostic BI IMPRESSION: -Mild bilateral gynecomastia. -Unremarkable left breast and axillary ultrasound. ASSESSMENT: BI-RADS 2: Benign RECOMMENDATION: Patient's mastodynia should be managed based on the clinical impression.
== END 2022-12-18 08:11 | disposition home or self-care (01) ==
LOC: HO.MAMMO 08:10
PROVIDERS: Visit Provider Nurse Practitioner Family
DX: N64.4 Mastodynia (principal)
CPT/HCPCS: 76642; 77062; 77066

== ENCOUNTER → 2023-01-16 11:26 | Outpatient (BNVA) | payer OTHER, SELFPAY | PROVIDERS: PCP Internal Medicine; Visit Provider Internal Medicine | DX: Z13.89 Encounter for screening for other disorder (principal) ==

== ENCOUNTER 2023-01-23 11:45 | Outpatient (REF) | payer OTHER, SELFPAY ==
--- NOTE | ~2023-01-23 | US_ITS ---
EXAMINATION: US RETROPERITONEAL LIMITED (RENAL ONLY) CLINICAL INFORMATION: Calculus of kidney. COMPARISON: CT abdomen and pelvis 09/26/2022 TECHNIQUE: Real-time imaging of the kidneys. FINDINGS: RIGHT KIDNEY: 10.5 x 5.8 x 4.4 cm (SAG x AP x TRV). The kidney is normal in size, contour, and echogenicity. Renal cortical thickness is normal. No calculi or focal parenchymal lesions. No hydronephrosis. LEFT KIDNEY: 11.1 x 5.5 x 5.1 cm (SAG x AP x TRV). The kidney is normal in size, contour, and echogenicity. Renal cortical thickness is normal. No calculi or focal parenchymal lesions. No hydronephrosis. US/US renal BI IMPRESSION: Unremarkable sonographic imaging of the kidneys. Specifically, no renal calculi or hydronephrosis bilaterally.
== END 2023-01-23 11:46 | disposition home or self-care (01) ==
LOC: HO.HMGCX 11:45
PROVIDERS: PCP Internal Medicine; Visit Provider Nurse Practitioner Family
DX: N20.0 Calculus of kidney (principal)
CPT/HCPCS: 76775

== ENCOUNTER → 2023-02-03 09:40 | Outpatient (BNVA) | payer OTHER, SELFPAY | PROVIDERS: PCP Internal Medicine; Visit Provider Nurse Practitioner Family | DX: Z13.89 Encounter for screening for other disorder (principal) ==

== ENCOUNTER 2023-07-14 17:23 | Emergency (ER) | payer OTHER, SELFPAY ==
--- NOTE | ~2023-07-14 | XR_ITS ---
EXAMINATION: PORTABLE CHEST 1 VIEW CLINICAL INFORMATION: chest pain, shortness of breath. COMPARISON: 08/01/2022. TECHNIQUE: Portable frontal view of the chest was obtained. FINDINGS: The lungs are well expanded. Linear scarring or atelectasis seen at the left base. No superimposed focal infiltrate, effusion, edema, or pneumothorax. Cardiac and mediastinal silhouettes are within normal limits for technique. No acute bony abnormality seen. XR/XR chest 1V IMPRESSION: Linear scarring or atelectasis at the left base.
--- NOTE | ~2023-07-14 | CT_ITS ---
EXAMINATION: CT ABDOMEN AND PELVIS WITH CONTRAST CLINICAL INFORMATION: Left lower quadrant pain COMPARISON: None. TECHNIQUE: Multidetector volumetric imaging was performed from the superior aspect of the liver through the pubic symphysis following administration of 85 mL Omnipaque 300 intravenous contrast. Sagittal and coronal reformatted images were obtained on the technologist workstation.. This CT examination was performed using dose optimization techniques as appropriate, variously including the following: *Automated exposure control *Adjustment of mA and/or kV according to patient size (this includes techniques or standardized protocols for targeted exams where dose is matched to indication/reason for exam; i.e. extremities or head) *Use of iterative reconstruction technique DLP: 579 mGy-cm FINDINGS: LUNG BASES: Postoperative changes at the left lung base with chain staple line partially visualized. Previously noted left lower lobe nodule was no longer seen LIVER, GALLBLADDER, AND BILIARY TREE: The liver is normal in size, shape, and attenuation. No focal hepatic lesion or biliary ductal dilatation is present. The gallbladder is contracted but otherwise unremarkable with no evidence of radiopaque gallstones, gallbladder wall thickening, or obvious pericholecystic inflammatory changes. PANCREAS: Unremarkable. SPLEEN: Unremarkable. ADRENAL GLANDS: Unremarkable. KIDNEYS AND URETERS: The kidneys are normal in size, shape, and attenuation. No hydronephrosis, hydroureter, or calculi seen. No perinephric stranding. BLADDER: Decompressed but otherwise unremarkable GASTROINTESTINAL TRACT: A few scattered colonic diverticula are incidentally seen but no colonic wall thickening or pericolonic inflammatory change to suggest diverticulitis. Unremarkable appendix in the right lower quadrant. Visualized small bowel is unremarkable. No obstructive changes seen ABDOMINAL WALL: No significant hernia is appreciated. LYMPHOVASCULAR STRUCTURES: No lymphadenopathy. The aorta is unremarkable. PELVIC VISCERA: Unremarkable. OSSEOUS STRUCTURES: Unremarkable. CT/CT abdomen pelvis w IV con IMPRESSION: No acute intra-abdominal process seen. A few scattered colonic diverticula are seen but no evidence for diverticulitis.
[2023-07-14 17:30] VITALS: BP 148/95; PULSE 120; RESP 16; TEMP 38; O2SAT 99; BMI 26.6
--- NOTE | 2023-07-14 17:31 | ECG_ITS ---
Test Reason : DIFFICULTY BREATHING Blood Pressure : / mmHG Vent. Rate : 114 BPM Atrial Rate : 114 BPM P-R Int : 130 ms QRS Dur : 072 ms QT Int : 306 ms P-R-T Axes : 047 078 024 degrees QTc Int : 421 ms Sinus tachycardia Otherwise normal ECG When compared with ECG of 23-FEB-2020 15:12, Heart rate has increased Referred By: Donaldo Greene Electronically Signed By:HUMERA HALL
--- NOTE | 2023-07-14 17:31 | ED.GENADULT ---
HPI - General Adult General Chief complaint: General Medical Stated complaint: difficulty breathing Time Seen by Provider: 07/14/23 18:58 Source: patient and family Mode of arrival: ambulatory History of Present Illness HPI narrative: 37-year-old male presents with complaints of chest pressure, shortness of breath, cough and fever there have been ongoing since yesterday. Patient denies any nausea or vomiting, denies any diarrhea and denies any dysuria. Related Data Previous Rx's Medication Instructions Recorded acetaminophen 500 mg tablet 1,000 mg PO Q6H PRN fever or pain 12/12/22 (Tylenol Extra Strength) #60 tabs cyclobenzaprine 5 mg tablet 5 mg PO BID PRN muscle spasm #30 12/12/22 tabs cetirizine 5 mg tablet (Allergy 5 mg PO DAILY PRN allergy symptoms 05/16/23 Relief (cetirizine)) #30 tabs hydrocortisone 2.5 % topical cream 1 appl [place] BID-QID PRN hemorrhoids 05/16/23 with perineal applicator #30 grams (Proctosol HC) pantoprazole 40 mg tablet,delayed 40 mg PO DAILY #90 tabs 05/16/23 release sennosides 8.6 mg tablet (senna) 8.6 mg PO BEDTIME constipation #30 05/16/23 tabs albuterol sulfate 90 mcg/actuation 2 puff inhalation Q4-6H PRN 05/17/23 aerosol inhaler (ProAir HFA) shortness of breath or wheezing 30 days #8.5 grams Allergies Allergy/AdvReac Type Severity Reaction Status Date / Time No Known Allergies Allergy Verified 02/03/23 10:31 [No Known Allergies*] Review of Systems Review of Systems: Pertinent positives and negatives as stated in HPI [facility] Past Medical History Source: nursing notes reviewed Medical History Abdominal bloating Constipation by delayed colonic transit COVID-19 Dizziness Dyslipidemia Dyspnea on exertion Hypovitaminosis D Kidney stone Lung nodule Nephrolithiasis Post covid-19 condition, unspecified Surgical History History of esophagogastroduodenoscopy (EGD) History of umbilical hernia repair Family History Family History Father Diabetes Hypertension Mother Hypertension Diabetes Paternal Grandfather Lung cancer Colon cancer Social History Social History Housing: House Alcohol intake: never Patient Tobacco Use Status: Former Tobacco user Tobacco use type: Cigarette Smoked in Last 30 Days: No e-Cigarette/Vaping Use: Never Used Second Hand Smoke Exposure: No Use of substances other than those prescribed or required for medical reasons: Yes Advance Directives: No Advance Directives Information Provided: Yes service: No Current occupational status: employed Current occupational exposures/hazards: No Cognitive needs: No Hearing needs: No Vision needs: No Physical Exam ED Vital Signs: Vital Signs - 24 hr 07/14/23 17:30 07/14/23 19:11 07/14/23 20:39 Temperature 100.4 F 102.3 F H 99.3 F Pulse Rate 120 H 118 H 107 H Respiratory Rate 16 13 17 Blood Pressure 148/95 H 141/87 H 130/73 Pulse Oximetry 99 99 98 Oxygen Delivery Method Room Air Room Air Room Air 07/14/23 21:24 07/14/23 21:30 Temperature 99.3 F Pulse Rate 106 H 108 H Respiratory Rate 18 16 Blood Pressure 128/81 128/81 Pulse Oximetry 98 97 Oxygen Delivery Method Room Air Room Air BMI result Body Mass Index 26.6 VITAL SIGNS: Reviewed. GENERAL: Well developed, well nourished, in no acute distress. HEAD: Normocephalic/atraumatic EYES: PERRLA, EOMI EARS: Ext canals without abnormality, TMs non-bulging and non-erythematous NOSE: Nares patent bilateral OROPHARYNX: no oral lesions noted, posterior pharynx clear and non-erythematous without noted tonsillar enlargement but erythema is noted NECK: Supple, no adenopathy LUNGS: Normal breath sounds. No adventitious sounds or accessory muscle use. SpO2<99> CARDIOVASCULAR: Regular rate and rhythm without noted murmurs ABDOMEN: Soft, non-tender, non-distended with bowel sounds. MUSCULOSKELETAL: No tenderness, deformities, or effusions noted on gross inspection. EXTREMITIES: No cyanosis, clubbing or edema. SKIN: Inspection of the skin reveals no rashes, tactile fever NEUROLOGIC: Alert and oriented x 4. Strength and sensation to light touch were grossly intact x 4. Course Course Course Narrative: This is an RME: Additional HPI, ROS, PE not included below will be deferred to primary provider. 37 year old male with a history of lung surgery in November presenting with chest pressure, shortness of breath, fever and cough starting today. Not on blood thinners. Plan- labs, imaging, ekg Medications Administered Discontinued Medications Generic Name Dose Route Start Last Admin Trade Name Leny PRN Reason Stop Dose Admin Acetaminophen 650 mg 07/14/23 18:28 07/14/23 19:15 Acetaminophen 325 Mg Tablet PO 07/14/23 18:29 650 mg ONCE ONE Administration Sodium Chloride 1,000 mls @ 999 mls/hr 07/14/23 19:15 07/14/23 21:30 Ns IV 07/14/23 20:15 Infused .Q1H1M TORRI Infusion Iohexol 100 ml 07/14/23 20:08 07/14/23 20:08 Iohexol 350 Mg/Ml 100 Ml Infus..Btl IV 07/14/23 20:09 85 ml ONCE ONE Administration Ketorolac Tromethamine 15 mg 07/14/23 19:13 07/14/23 19:32 Ketorolac Tromethamine 30 Mg/Ml Vial IVPUSH 07/14/23 19:14 15 mg ONCE ONE Administration Medical Decision Making Medical Decision Making [facility] Narrative: 1910: Sepsis alert called. This is a 37-year-old male with history and clinical presentation, DDX: Pneumonia, strep throat, but after examination of the abdomen and suspicion for possible obstructive uropathy and feel it is less likely that it is a diverticulitis as patient has no symptoms of nausea or vomiting. However, I suspect viral versus bacterial infection. I reviewed all investigations and hematologic indices do not demonstrated leukocytosis, there is a very mild left shift under mild elevation the platelet count but otherwise no anemia. Chemistry indices do not demonstrate any MILES or electrolyte derangements liver enzymes are grossly within normal limits, troponin is undetectable and EKG simply demonstrates sinus tachycardia likely secondary to patient's febrile state. Urinalysis negative for UTI or hematuria. On re-evaluation after patient received IV fluids, Tylenol/Toradol heart rate has significantly improved, blood pressure remains stable, patient is not tachypneic and patient is currently afebrile. Chest x-ray does not demonstrate an infiltrate and otherwise my interpretation is in agreement with radiology's impression. CT abdomen/pelvis does not demonstrate any appendicitis/renal colic/diverticulitis or obstruction and otherwise my interpretation is in agreement with radiology's impression. All results and findings discussed with the patient at bedside and I encouraged the patient to re- test himself for COVID-19 in 3 days. My interpretation is patient has a viral syndrome. Differential Diagnosis Differential Diagnoses: The differential diagnosis associated with the presentation includes Please see the discussion above Admission/Observation Consideration of admission/observation: Escalation of care including admission/observation considered Please see the discussion above Lab Data MDM Lab Attestation statement: I reviewed the patient's lab results. Please see the discussion above 07/14/23 17:50 07/14/23 17:50 Labs: Lab Results 07/14/23 07/14/23 07/14/23 Range/Units 17:50 17:50 17:50 WBC 10.6 (4.8-10.8) X10*3/uL RBC 5.00 (4.60-5.80) X10*6/uL Hgb 14.7 (14.0-18.0) g/dl Hct 44.5 (42.0-52.0) % MCV 89.0 (80.0-98.0) fL MCH 29.4 (27.0-33.0) pg MCHC 33.0 (31.0-36.0) g/dl RDW 12.7 (11.0-16.0) % Plt Count 450 H (160-400) X10*3/uL MPV 9.7 (9.4-12.4) fL Immature Gran % (Auto) 0.4 (0.0-0.4) % Neut % (Auto) 77.6 H (45-73) % Lymph % (Auto) 12.6 L (20-40) % Centre % (Auto) 8.6 (2-11) % Eos % (Auto) 0.5 (0-4) % Baso % (Auto) 0.3 (0-2) % Lymph # (Auto) 1.3 (1.2-4.9) X10*3/uL Centre # (Auto) 0.9 (0.1-1.2) X10*3/uL Eos # (Auto) 0.1 (0.0-0.4) X10*3/uL Baso # (Auto) 0.0 (0.0-0.2) X10*3/uL Abs Immat Gran (auto) 0.04 H (0.00-0.03) X10*3/uL Absolute Neuts (auto) 8.2 (2.0-8.3) x10*3/uL Absolute Nucleated RBC 0.000 (0.0-0.012) X10*3/uL Nucleated RBC % (auto) 0.0 (0.0-0.2) /100WBC Sodium 140 (135-145) mmol/L Potassium 3.5 D (3.3-5.1) mmol/L Chloride 105 (96-108) mmol/L Carbon Dioxide 23 (22-29) mmol/L Anion Gap 16 (12-20) BUN 10 (9-16) mg/dL Creatinine 1.09 (0.5-1.4) mg/dL Estim Creat Clear Calc 90.6 Estimated GFR > 60 Random Glucose 102 (60-115) mg/dL Lactic Acid (0.5-2.0) mmol/L Calcium 9.9 (8.4-10.2) mg/dL Total Bilirubin 0.3 (0.0-1.0) mg/dL AST 29 (5-37) U/L ALT 33 (0-40) U/L Alkaline Phosphatase 65 (39-117) U/L Troponin I High Sens < 2.7 (<3.5-35.0) ng/L Total Protein 8.0 (6.5-8.0) g/dL Albumin 4.9 (3.5-5.0) g/dL Urine Color Urine Appearance Urine pH (5.0-9.0) Ur Specific [place] (1.005-1.025) Urine Protein (Neg-Trace) mg/dL Urine Glucose (UA) (Negative) mg/dL Urine Ketones (Negative) mg/dL Urine Blood (Negative) Urine Nitrite (Negative) Ur Leukocyte Esterase (Negative) COVID-19 (KELLY) (Negative) COVID-19 Clin Com Influenza Type A (PCR) (Negative) Influenza Type B (PCR) (Negative) RSV RNA Qual (PCR) (Negative) SARS-CoV-2 RNA (RT-PCR) (Negative) S. pyogenes GrpA WES (Negative) 07/14/23 07/14/23 07/14/23 Range/Units 17:51 17:51 19:28 WBC (4.8-10.8) X10*3/uL RBC (4.60-5.80) X10*6/uL Hgb (14.0-18.0) g/dl Hct (42.0-52.0) % MCV (80.0-98.0) fL MCH (27.0-33.0) pg MCHC (31.0-36.0) g/dl RDW (11.0-16.0) % Plt Count (160-400) X10*3/uL MPV (9.4-12.4) fL Immature Gran % (Auto) (0.0-0.4) % Neut % (Auto) (45-73) % Lymph % (Auto) (20-40) % Centre % (Auto) (2-11) % Eos % (Auto) (0-4) % Baso % (Auto) (0-2) % Lymph # (Auto) (1.2-4.9) X10*3/uL Centre # (Auto) (0.1-1.2) X10*3/uL Eos # (Auto) (0.0-0.4) X10*3/uL Baso # (Auto) (0.0-0.2) X10*3/uL Abs Immat Gran (auto) (0.00-0.03) X10*3/uL Absolute Neuts (auto) (2.0-8.3) x10*3/uL Absolute Nucleated RBC (0.0-0.012) X10*3/uL Nucleated RBC % (auto) (0.0-0.2) /100WBC Sodium (135-145) mmol/L Potassium (3.3-5.1) mmol/L Chloride (96-108) mmol/L Carbon Dioxide (22-29) mmol/L Anion Gap (12-20) BUN (9-16) mg/dL Creatinine (0.5-1.4) mg/dL Estim Creat Clear Calc Estimated GFR Random Glucose (60-115) mg/dL Lactic Acid 2.1 H* (0.5-2.0) mmol/L Calcium (8.4-10.2) mg/dL Total Bilirubin (0.0-1.0) mg/dL AST (5-37) U/L ALT (0-40) U/L Alkaline Phosphatase (39-117) U/L Troponin I High Sens (<3.5-35.0) ng/L Total Protein (6.5-8.0) g/dL Albumin (3.5-5.0) g/dL Urine Color Urine Appearance Urine pH (5.0-9.0) Ur Specific [place] (1.005-1.025) Urine Protein (Neg-Trace) mg/dL Urine Glucose (UA) (Negative) mg/dL Urine Ketones (Negative) mg/dL Urine Blood (Negative) Urine Nitrite (Negative) Ur Leukocyte Esterase (Negative) COVID-19 (KELLY) Negative (Negative) COVID-19 Clin Com See Note Influenza Type A (PCR) NEGATIVE (Negative) Influenza Type B (PCR) NEGATIVE (Negative) RSV RNA Qual (PCR) NEGATIVE (Negative) SARS-CoV-2 RNA (RT-PCR) NEGATIVE (Negative) S. pyogenes GrpA WES (Negative) 07/14/23 07/14/23 Range/Units 19:28 19:36 WBC (4.8-10.8) X10*3/uL RBC (4.60-5.80) X10*6/uL Hgb (14.0-18.0) g/dl Hct (42.0-52.0) % MCV (80.0-98.0) fL MCH (27.0-33.0) pg MCHC (31.0-36.0) g/dl RDW (11.0-16.0) % Plt Count (160-400) X10*3/uL MPV (9.4-12.4) fL Immature Gran % (Auto) (0.0-0.4) % Neut % (Auto) (45-73) % Lymph % (Auto) (20-40) % Centre % (Auto) (2-11) % Eos % (Auto) (0-4) % Baso % (Auto) (0-2) % Lymph # (Auto) (1.2-4.9) X10*3/uL Centre # (Auto) (0.1-1.2) X10*3/uL Eos # (Auto) (0.0-0.4) X10*3/uL Baso # (Auto) (0.0-0.2) X10*3/uL Abs Immat Gran (auto) (0.00-0.03) X10*3/uL Absolute Neuts (auto) (2.0-8.3) x10*3/uL Absolute Nucleated RBC (0.0-0.012) X10*3/uL Nucleated RBC % (auto) (0.0-0.2) /100WBC Sodium (135-145) mmol/L Potassium (3.3-5.1) mmol/L Chloride (96-108) mmol/L Carbon Dioxide (22-29) mmol/L Anion Gap (12-20) BUN (9-16) mg/dL Creatinine (0.5-1.4) mg/dL Estim Creat Clear Calc Estimated GFR Random Glucose (60-115) mg/dL Lactic Acid (0.5-2.0) mmol/L Calcium (8.4-10.2) mg/dL Total Bilirubin (0.0-1.0) mg/dL AST (5-37) U/L ALT (0-40) U/L Alkaline Phosphatase (39-117) U/L Troponin I High Sens (<3.5-35.0) ng/L Total Protein (6.5-8.0) g/dL Albumin (3.5-5.0) g/dL Urine Color Yellow Urine Appearance Clear Urine pH 8.0 (5.0-9.0) Ur Specific [place] >= 1.030 H (1.005-1.025) Urine Protein Trace (Neg-Trace) mg/dL Urine Glucose (UA) Negative (Negative) mg/dL Urine Ketones 15 (Negative) mg/dL Urine Blood Negative (Negative) Urine Nitrite Negative (Negative) Ur Leukocyte Esterase Negative (Negative) COVID-19 (KELLY) (Negative) COVID-19 Clin Com Influenza Type A (PCR) (Negative) Influenza Type B (PCR) (Negative) RSV RNA Qual (PCR) (Negative) SARS-CoV-2 RNA (RT-PCR) (Negative) S. pyogenes GrpA WES Negative (Negative) Independent Interpretation I performed an independent interpretation of an: EKG Interpretation: Sinus tachycardia, HR-114, no STEMI, IL/QRS/QTC is within normal limits. Radiology Impression Radiologist Impression: Please see the discussion above External Record Review External record reviewed: Outpatient record, Prior outpatient labs and Prior outpatient radiology Critical Care Time Critical Care Time Critical Care Time: Yes Total Critical Care Time: 30 Attestation: I personally attest to this time spent taking care of the patient. Discharge Plan Discharge Clinical Impression: SIRS (systemic inflammatory response syndrome), Viral syndrome Patient Disposition: Home, Self-Care Instructions: Viral Syndrome (ED) Additional Instructions: 1. Tylenol 1000 mg, por v?a oral, cada 6 horas seg?n sea necesario para korin corporales y temperaturas superiores a 100,4. No exceda los 4000 mg en 24 horas. 2. Ibuprofeno 400 mg, por v?a oral con leche o alimentos, cada 6 horas seg?n sea necesario para korin corporales y temperaturas superiores a 100,4. 3. Aumente la ingesta de agua brent los pr?ximos 3 o 4 d?as. No comprenda que los s?ndromes virales suelen tardar entre 5 y 7 d?as en resolverse. 4. Recomiendo encarecidamente volver a verificar burns estado de COVID-19 en 3 d?as. 5. Recomendar seguimiento con burns m?dico de atenci?n primaria. Regrese a la salma de emergencias si janie s?ntomas empeoran. 1. Tylenol 1000 mg, orally, every 6 hours as needed for body aches and temperatures greater than 100.4. Do not exceed 4000 mg within 24 hours. 2. Ibuprofen 400 mg, orally with milk or food, every 6 hours as needed for body aches and temperatures greater than 100.4. 3. Please increase the water intake for the next 3-4 days not understand that viral syndromes typically take anywhere from 5-7 days to resolve. 4. I highly recommend rechecking your COVID-19 status in 3 days. 5. Recommend follow-up with your primary care doctor. Return to the ER for any worsening of your symptoms. Prescriptions: No Action cetirizine [Allergy Relief (cetirizine)] 5 mg tablet 5 mg PO DAILY PRN (Reason: allergy symptoms) Qty: 30 3RF pantoprazole 40 mg tablet,delayed release (DR/EC) 40 mg PO DAILY Qty: 90 2RF Rx Instructions: take one tablet half an hour before breakfast sennosides [senna] 8.6 mg tablet 8.6 mg PO BEDTIME Qty: 30 1RF hydrocortisone [Proctosol HC] 2.5 % cream with perineal applicator 1 appl IL BID-QID PRN (Reason: hemorrhoids) Qty: 30 2RF albuterol sulfate [ProAir HFA] 90 mcg/actuation HFA aerosol inhaler 2 puff inhalation Q4-6H PRN (Reason: shortness of breath or wheezing) 30 Days Qty: 8.5 5RF cyclobenzaprine 5 mg tablet 5 mg PO BID PRN (Reason: muscle spasm) Qty: 30 0RF acetaminophen [Tylenol Extra Strength] 500 mg tablet 1,000 mg PO Q6H PRN (Reason: fever or pain) Qty: 60 0RF Referrals: Preeti Davis MD [Primary Care Provider] - Print Language: Kuwaiti
[2023-07-14 18:05] LABS: MANUAL DIFF FLAG NO
[2023-07-14 18:06] LABS: Basophils Percent Auto 0.3 % (0-2); Eosinophils Absolute Auto 0.1 X10*3/uL (0.0-0.4); Eosinophils Percent Auto 0.5 % (0-4); Hematocrit 44.5 % (42.0-52.0); Hemoglobin 14.7 g/dl (14.0-18.0); Imm Gran Abs Auto 0.04 X10*3/uL (0.00-0.03); Imm Gran Pct Auto 0.4 % (0.0-0.4); Lymphocytes Absolute Auto 1.3 X10*3/uL (1.2-4.9); Lymphocytes Percent Auto 12.6 % (20-40); Mean Corpuscular Hemoglobin 29.4 pg (27.0-33.0); Mean Platelet Volume 9.7 fL (9.4-12.4); Monocytes Absolute Auto 0.9 X10*3/uL (0.1-1.2); Monocytes Percent Auto 8.6 % (2-11); Neutrophils Absolute Auto 8.2 x10*3/uL (2.0-8.3); Neutrophils Percent Auto 77.6 % (45-73); Platelet Count 450 X10*3/uL (160-400); Red Cell Distribution Width 12.7 % (11.0-16.0); White Blood Count 10.6 X10*3/uL (4.8-10.8)
[2023-07-14 18:16] LABS: COVID-19 Test Negative (Negative); IDNOW Serial# BCCEAD1C
[2023-07-14 18:19] LABS: Alanine Aminotransferase 33 U/L (0-40); Albumin Level 4.9 g/dL (3.5-5.0); Alkaline Phosphatase 65 U/L (39-117); Anion Gap 16 (12-20); Aspartate Amino Transferase 29 U/L (5-37); Bilirubin Total 0.3 mg/dL (0.0-1.0); Blood Urea Nitrogen 10 mg/dL (9-16); Calcium 9.9 mg/dL (8.4-10.2); Carbon Dioxide 23 mmol/L (22-29); Chloride 105 mmol/L (96-108); Creatinine Clr Calc Pharmacy 90.6; Estimated Glomerular Filt Rate > 60; Glucose Random 102 mg/dL (60-115); Potassium 3.5 mmol/L (3.3-5.1); Sodium 140 mmol/L (135-145)
[2023-07-14 18:30] LABS: Troponin-I High Sensitivity < 2.7 ng/L (<3.5-35.0)
[2023-07-14 18:42] LABS: Influenza A PCR NEGATIVE (Negative); Influenza B PCR NEGATIVE (Negative); Resp Syncy Virus RNA Qual PCR NEGATIVE (Negative); SARS COV2 PCR INHOUSE NEGATIVE (Negative)
[2023-07-14 19:11] VITALS: BP 141/87; PULSE 118; RESP 13; TEMP 39.1; O2SAT 99
[2023-07-14] MEDS: Acetaminophen 325 MG TABLET 650 MG PO (19:15)
[2023-07-14] MEDS: 0.9 % Sodium Chloride 1,000 ML 999 ML IV (19:30)
[2023-07-14] MEDS: Ketorolac Tromethamine 30 MG/ML VIAL 15 MG IVPUSH (19:32)
[2023-07-14 19:43] LABS: Appearance Urine Clear; Color Urine Yellow; Glucose Urine UA Negative (Negative); Leukocyte Esterase Urine Negative (Negative); Nitrite Urine Negative (Negative); Specific Gravity - Urine >= 1.030 (1.005-1.025); Urine Blood Negative (Negative); Urine Ketones 15 mg/dL (Negative); Urine Protein Trace mg/dL (Neg-Trace)
[2023-07-14 19:49] LABS: IDNOW Serial# 08D9AD1C; Strep A Nucleic Acid Negative (Negative)
[2023-07-14 19:50] LABS: Lactic Acid 2.1 mmol/L (0.5-2.0)
[2023-07-14] MEDS: iohexoL 350 MG/ML 100 ML INFUS..BTL IV (20:08)
--- NOTE | 2023-07-14 20:09 | PC.NURSE ---
Pt presenting to ER with pain all over, specifically in his back. Pt was brought back from triage and sepsis alert called. I placed an 18g IV in the left AC. Labs drawn and sent. Fluids are started and pt medicated per JAN. Pt is A&Ox4, GCS 15, is able to stand and use a urinal. Pt waiting test results at this time.
[2023-07-14 20:39] VITALS: BP 130/73; PULSE 107; RESP 17; TEMP 37.4; O2SAT 98
[2023-07-14 21:24] VITALS: BP 128/81; PULSE 106; RESP 18; TEMP 37.4; O2SAT 98
--- NOTE | 2023-07-14 21:25 | MHC.EDTECH ---
Patient walked to the bathroom
[2023-07-14 21:30] VITALS: BP 128/81; PULSE 108; RESP 16; O2SAT 97
[2023-07-14 21:33] LABS: Reflex Lactate? Lactic Acid Added
[2023-07-14 21:35] VITALS: BP 128/75; PULSE 111; RESP 16; O2SAT 98
== END 2023-07-14 22:25 | disposition home or self-care (01) ==
PROVIDERS: Physician Assistant; Emergency Provider Student in an Organized Health Care Education/Training Program; PCP Internal Medicine
DX: B34.9 Viral infection, unspecified (principal); R00.0 Tachycardia, unspecified; R65.10 Systemic inflammatory response syndrome (SIRS) of non-infectious origin without acute organ dysfunction; R10.2 Pelvic and perineal pain; R06.02 Shortness of breath; R10.32 Left lower quadrant pain; R07.89 Other chest pain; Z20.822 Contact with and (suspected) exposure to COVID-19; Z20.828 Contact with and (suspected) exposure to other viral communicable diseases; Z87.891 Personal history of nicotine dependence; Z79.899 Other long term (current) drug therapy
CPT/HCPCS: 0241U; 36415; 71045; 74177; 80053; 81003; 83605; 84484; 85025; 87040; 87635; 87651; 93005; 96361; 96374; 99284; 99285; J1885; Q9967

== ENCOUNTER 2023-07-15 17:25 | Outpatient (AMB) | payer OTHER, SELFPAY ==
--- NOTE | 2023-07-15 17:28 | A.OFFPC_ITS ---
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 Accompanied by: Self / Same As Patient Allergies No Known Allergies [No Known Allergies*] Allergy (Verified 07/15/23 17:43) Medication List - Last Reconciled 07/15/23 by Preeti Acosta MD albuterol sulfate 90 mcg/actuation (ProAir HFA) 2 puffs inhalation Q4-6H PRN 30 days cyclobenzaprine 5 mg PO BID PRN hydrocortisone 2.5% (Proctosol HC) 1 appl [place] BID-QID PRN pantoprazole 40 mg PO DAILY sennosides (senna) 8.6 mg PO BEDTIME Tobacco use date assessed: 12/12/22 Dental Screening Dental Screen Date: 07/15/23 Did you have a dental visit in the last 12 months?: No Did you have a dental problem in the last 6 months where you did not have access to dental care?: No Was dental information given to patient?: Patient has dentist HPI HPI Comments History of Present Illness Details * This is a 37-year-old male that comes for his physical exam. Denies chest pain or shortness of breath today. Complains of severely dozing off when sitting and reading, lying down to rest in the afternoon, sitting quietly after lunch without alcohol and watching TV with an [place] score Scale of 12. Also complains of headaches in the morning and has had elevated blood pressure at work occasionally. [facility] Medical History (Updated 07/15/23 @ 17:54 by Preeti Acosta MD) Abdominal bloating Constipation by delayed colonic transit COVID-19 Dizziness Dyslipidemia Dyspnea on exertion Hypovitaminosis D Kidney stone Lung nodule Nephrolithiasis Post covid-19 condition, unspecified Surgical History History of esophagogastroduodenoscopy (EGD) History of umbilical hernia repair Family History Father Diabetes Hypertension Mother Hypertension Diabetes Paternal Grandfather Lung cancer Colon cancer Social History Housing: House Alcohol intake: never Patient Tobacco Use Status: Former Tobacco user Tobacco use type: Cigarette e-Cigarette/Vaping Use: Never Used Second Hand Smoke Exposure: No service: No Current occupational status: employed Current occupational exposures/hazards: No Cognitive needs: No Hearing needs: No Vision needs: No Questionnaire Thrive Questionnaire Date Thrive assessed: 12/12/22 EMILY-7 AMB Questionnaire EMILY-7 Date EMILY - 7 assessed: 12/12/22 Source: Developed by Drs. Gideon Lawler, April Delacruz, Crescencio Garner and colleagues, with an educational viviane from [facility]. Review of Systems Const All systems reviewed & are unremarkable except as noted in HPI and below Eyes Reports no additional complaints, Denies change in vision and Denies other visual disturbances Card Denies chest pain at rest, Denies chest pain with activity, Denies edema, Denies irregular heart rhythm, Denies claudication, Denies dyspnea, Denies dyspnea on exertion, Denies orthopnea, Denies paroxysmal nocturnal dyspnea and Denies slow heart rate Resp Denies cough, Denies dyspnea and Denies dyspnea on exertion GI Denies abdominal pain, Denies change in bowel habits, Denies excessive flatus, Denies nausea and Denies vomiting Denies urinary hesitancy, Denies urinary incontinence and Denies urinary urgency Musc Denies atrophy, Denies deformity and Denies limited range of motion Physical exam (Primary Care) Vital Signs: Last Vital Signs BP 130/80 07/15/23 17:32 BMI result Body Mass Index 26.3 Tobacco/Smoking Status: Tobacco use Status Tobacco use date assessed 12/12/22 07/15/23 17:35 Patient Tobacco Use Status Former Tobacco user 07/15/23 17:35 Tobacco use type Cigarette 07/15/23 17:35 e-Cigarette/Vaping Use Never Used 07/15/23 17:35 Thrive Assessment: Date of Thrive Assessment Date Thrive assessed 12/12/22 07/15/23 17:35 Const Orientation/consciousness: patient oriented x3 HENMT Head: Yes normal to inspection, Yes normocephalic and Yes atraumatic Ears: external ears normal Eyes General: appearance normal, both eyes and all related structures Eyelids: Yes eyelids normal Conjunctivae: conjunctivae normal Neck Neck: Yes normal visual inspection and Yes supple Resp Effort & Inspection: normal respiratory effort Auscultation: clear to auscultation bilaterally Cardio Jugular venous distension: no JVD Rate: regular rate Rhythm: regular rhythm Heart sounds: S1 normal heart sound present and S2 normal heart sound present GI Inspection: Yes normal to inspection Palpation (GI): Soft to palpation and nontender Auscultation: normal bowel sounds Skin General skin exam: no rashes or lesions noted Neuro General: patient oriented x3 and no focal motor deficits Extrem General: Yes full ROM Psych Appearance: grossly normal Assessment and Plan Assessment & Plan (1) Physical exam: Code(s): Z00.00 - Encounter for general adult medical examination without abnormal findings Plan: Repeat in a year. Orders: Orders RT home sleep study Today R40.0 - Somnolence Coding Level of Care Code Est Pt Prev Care 18-39y(65209) Diagnoses Physical exam Z00.00 Time Spent (min) 31
[2023-07-15 17:32] VITALS: BP 130/80; BMI 26.3
== END 2023-07-15 17:55 | disposition home or self-care (01) ==
PROVIDERS: PCP Internal Medicine; Visit Provider Internal Medicine
DX: Z00.00 Encounter for general adult medical examination without abnormal findings (principal)
CPT/HCPCS: 99395

== ENCOUNTER 2023-07-24 10:08 | Outpatient (AMB) | payer OTHER, SELFPAY ==
--- NOTE | 2023-07-24 10:15 | MHC.OFFVIS ---
Intake Vital Signs 07/24/23 10:18 Height 5 ft 8 in Weight 173 lb 1.006 oz BMI 26.3 BP 104/80 Pulse 90 Pulse Source Pulse Oximeter Pulse Oximetry (%) 96 Oxygen Delivery Method Room Air Intake Visit Reasons: dyspnea Promotional Marketing Analyst: Promotional Marketing Analyst offered & declined Accompanied by: Self / Same As Patient Allergies No Known Allergies [No Known Allergies*] Allergy (Verified 07/24/23 10:29) Medication List - Last Reconciled 07/24/23 by Lucía Guzman MD albuterol sulfate 90 mcg/actuation (ProAir HFA) 2 puffs inhalation Q4-6H PRN 30 days cyclobenzaprine 5 mg PO BID PRN hydrocortisone 2.5% (Proctosol HC) 1 appl [place] BID-QID PRN pantoprazole 40 mg PO DAILY sennosides (senna) 8.6 mg PO BEDTIME Do you need a note to return to daycare/school/sports/work: No HPI dyspnea HPI Details This 37 years old gentleman has history of mild bronchial asthma, He has past history of smoking which she quit from early this year. He had resection of a nodule in left lower lobe, by DaVinci procedure , done by Dr. 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 He has been okay since then except for mild discomfort in the left chest off and on. He has had no attacks of wheezing, but was seen in the emergency room with cough and some shortness of breath, after a mild bout of cold. He was treated with updraft treatment, and got better, advised not to use too much of albuterol because of tachycardia. He is here today for follow-up. Breathing is okay he has only. Mild intermittent cough He is not smoking. He does smoke weed only once at night before he goes to sleep. [facility] Medical History (Updated 07/24/23 @ 10:36 by Lucía Guzman MD) Bronchial asthma Nephrolithiasis Lung nodule Kidney stone Dyspnea on exertion Post covid-19 condition, unspecified Dizziness Hypovitaminosis D Abdominal bloating Dyslipidemia Constipation by delayed colonic transit COVID-19 Surgical History History of esophagogastroduodenoscopy (EGD) History of umbilical hernia repair Family History Father Diabetes Hypertension Mother Hypertension Diabetes Paternal Grandfather Lung cancer Colon cancer Social History Housing: House Alcohol intake: never Patient Tobacco Use Status: Former Tobacco user Tobacco use type: Cigarette e-Cigarette/Vaping Use: Never Used Second Hand Smoke Exposure: No service: No Current occupational status: employed Current occupational exposures/hazards: No Cognitive needs: No Hearing needs: No Vision needs: No Review of Systems Const All systems reviewed & are unremarkable except as noted in HPI and below Eyes Reports no additional complaints ENT Reports no additional complaints Card Denies chest pain, Denies irregular heart rhythm and Denies leg edema Resp Reports as per HPI GI Reports constipation Reports no additional complaints Musc Reports no additional complaints Skin/Breast Reports system reviewed and no additional complaints, except as documented Neuro Reports no additional complaints Psych Reports no additional complaints Physical Exam Vital Signs: Last Vital Signs Pulse 90 07/24/23 10:18 BP 104/80 07/24/23 10:18 Pulse Ox 96 07/24/23 10:18 Oxygen Delivery Method Room Air 07/24/23 10:18 BMI result Body Mass Index 26.3 Const General: healthy appearing, comfortable, no acute distress, alert and awake Orientation/consciousness: patient oriented x3 HEENT Head: Yes normal to inspection General nose exam: No nasal polyps present and No nasal discharge present Face and sinus: Yes sinuses nontender Mouth: oropharynx normal Throat: Yes posterior oropharynx normal Eyes General: appearance normal, both eyes and all related structures Neck Neck: Yes normal visual inspection, Yes no lymphadenopathy, Yes trachea midline and Yes no JVD Thyroid: Thyroid normal Chest Chest palpation & inspection: normal inspection of the chest, normal palpation of entire chest wall and no tenderness Resp Effort & Inspection: normal respiratory effort Auscultation: clear to auscultation bilaterally, no crackles, no rales and no wheezes Cardio Palpation: normal PMI Rate: regular rate Rhythm: regular rhythm Heart sounds: no gallops and no murmurs Peripheral pulses: Peripheral pulses 2+ throughout GI Palpation (GI): Soft to palpation, nontender, No hepatosplenomegaly present and no masses Auscultation: normal bowel sounds Back/Spine/Pelvis Thoracic/Lumbar Spine: thoracic and lumbar spine normal to inspection Skin General skin exam: no rashes or lesions noted Neuro General: patient oriented x3 and no focal motor deficits Cranial nerves: Yes CN's II-XII intact bilaterally Extrem General: Yes normal to inspection, Yes no clubbing, cyanosis or edema and Yes no calf tenderness Psych Appearance: grossly normal and well kempt Speech and movement: Normal speech and movement present Assessment & Plan Assessment & Plan (1) Bronchial asthma: Comment: Occasional cough with shortness of breath is probably due to mild intermittent bronchial asthma. TX: ProAir 1 or 2 puffs Q 4-6 hours p.r.n.. Educated that he should not over do with the inhaler. Will be rechecked in about a month again,, will do spirometry in the office. Code(s): J45.909 - Unspecified asthma, uncomplicated (2) Lung nodule: Comment: 11/20/2022 Dr. 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 Chest x-ray shows a small linear scar in the left lower lobe which represents the scar from surgery, Explained to the patient. About this abnormal finding Code(s): R91.1 - Solitary pulmonary nodule Coding Level of Care Code Est Pt Level 3 (00325) Diagnoses Bronchial asthma J45.909 Lung nodule R91.1
[2023-07-24 10:18] VITALS: BP 104/80; PULSE 90; O2SAT 96; BMI 26.3
== END 2023-07-24 10:28 | disposition home or self-care (01) ==
PROVIDERS: PCP Internal Medicine; Visit Provider Internal Medicine
DX: J45.909 Unspecified asthma, uncomplicated (principal); R91.1 Solitary pulmonary nodule
CPT/HCPCS: 99213

== ENCOUNTER → 2023-07-24 10:08 | Outpatient (BNVA) | payer OTHER, SELFPAY | PROVIDERS: PCP Internal Medicine; Visit Provider Internal Medicine ==

== ENCOUNTER 2023-09-03 10:36 | Outpatient (AMB) | payer OTHER, SELFPAY ==
[2023-09-03 10:42] VITALS: BP 120/80; PULSE 68; O2SAT 98; BMI 26.5
--- NOTE | 2023-09-03 10:42 | MHC.OFFVIS ---
Intake Vital Signs 09/03/23 10:42 Height 5 ft 8 in Weight 174 lb BMI 26.5 BP 120/80 Blood Pressure Location Lt brachial Position Sitting Pulse 68 Pulse Oximetry (%) 98 Intake Visit Reasons: dyspnea Allergies No Known Allergies [No Known Allergies*] Allergy (Verified 09/03/23 10:59) Medication List - Last Reconciled 09/03/23 by Lucía Guzman MD albuterol sulfate 90 mcg/actuation (ProAir HFA) 2 puffs inhalation Q4-6H PRN 30 days cyclobenzaprine 5 mg PO BID PRN hydrocortisone 2.5% (Proctosol HC) 1 appl [place] BID-QID PRN pantoprazole 40 mg PO DAILY sennosides (senna) 8.6 mg PO BEDTIME Do you need a note to return to daycare/school/sports/work: No HPI dyspnea HPI Details 38 YEARS OLD GENTLEMAN, 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 HE IS THE POST DAVINCI PROCEDURE AND EXCISION OF PULMONARY NODULE LEFT LOWER LOBE WHICH WAS DIAGNOSED NECROTIZING GRANULOMA. HE WAS LEFT WITH RESIDUAL COUGH ON TALKING AND EXERTION. WHICH WAS CONSIDERED TO BE DUE TO REACTIVE AIRWAYS/ ASTHMA VARIANT. HE DOES HAVE ALBUTEROL INHALER WHICH HE HAS USED ONLY A FEW TIMES DURING THE WHOLE MONTH. PRESENT HE HAS VERY LITTLE COUGH OR WHEEZING. NO CHEST PAIN. AND NO DYSPNEA ON EXERTION [facility] Medical History (Updated 09/03/23 @ 11:58 by Lucía Guzman MD) Bronchial asthma Nephrolithiasis Lung nodule Kidney stone Dyspnea on exertion Post covid-19 condition, unspecified Dizziness Hypovitaminosis D Abdominal bloating Dyslipidemia Constipation by delayed colonic transit COVID-19 Surgical History History of esophagogastroduodenoscopy (EGD) History of umbilical hernia repair Family History Father Diabetes Hypertension Mother Hypertension Diabetes Paternal Grandfather Lung cancer Colon cancer Social History Housing: House Alcohol intake: never Patient Tobacco Use Status: Former Tobacco user Tobacco use type: Cigarette e-Cigarette/Vaping Use: Never Used Second Hand Smoke Exposure: No service: No Current occupational status: employed Current occupational exposures/hazards: No Cognitive needs: No Hearing needs: No Vision needs: No Review of Systems Const All systems reviewed & are unremarkable except as noted in HPI and below Eyes Reports no additional complaints ENT Reports no additional complaints Card Denies chest pain, Denies irregular heart rhythm and Denies leg edema Resp Reports as per HPI GI Reports constipation Reports no additional complaints Musc Reports no additional complaints Skin/Breast Reports system reviewed and no additional complaints, except as documented Neuro Reports no additional complaints Psych Reports no additional complaints Physical Exam Vital Signs: Last Vital Signs Pulse 68 09/03/23 10:42 BP 120/80 09/03/23 10:42 Pulse Ox 98 09/03/23 10:42 BMI result Body Mass Index 26.5 Const General: healthy appearing, comfortable, no acute distress, alert and awake Orientation/consciousness: patient oriented x3 HEENT Head: Yes normal to inspection General nose exam: No nasal polyps present and No nasal discharge present Face and sinus: Yes sinuses nontender Mouth: oropharynx normal Throat: Yes posterior oropharynx normal Eyes General: appearance normal, both eyes and all related structures Neck Neck: Yes normal visual inspection, Yes no lymphadenopathy, Yes trachea midline and Yes no JVD Thyroid: Thyroid normal Chest Chest palpation & inspection: normal inspection of the chest, normal palpation of entire chest wall and no tenderness Resp Effort & Inspection: normal respiratory effort Auscultation: clear to auscultation bilaterally, no crackles, no rales and no wheezes Cardio Palpation: normal PMI Rate: regular rate Rhythm: regular rhythm Heart sounds: no gallops and no murmurs Peripheral pulses: Peripheral pulses 2+ throughout GI Palpation (GI): Soft to palpation, nontender, No hepatosplenomegaly present and no masses Auscultation: normal bowel sounds Back/Spine/Pelvis Thoracic/Lumbar Spine: thoracic and lumbar spine normal to inspection Skin General skin exam: no rashes or lesions noted Neuro General: patient oriented x3 and no focal motor deficits Cranial nerves: Yes CN's II-XII intact bilaterally Extrem General: Yes normal to inspection, Yes no clubbing, cyanosis or edema and Yes no calf tenderness Psych Appearance: grossly normal and well kempt Speech and movement: Normal speech and movement present Results Reviewed Results Reviewed: SPIROMETRY: Could not be performed due to technical reason. He will have it done next week . I expected to be normal. Assessment & Plan Assessment & Plan (1) Lung nodule: Comment: 11/20/2022 Dr. 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 Chest x-ray shows a small linear scar in the left lower lobe which represents the scar from surgery, Explained to the patient. About this abnormal finding. No further action needed Code(s): R91.1 - Solitary pulmonary nodule (2) Bronchial asthma: Comment: Occasional cough with shortness of breath is probably due to mild intermittent bronchial asthma. Seems to have resolved. He does not have much cough or wheezing. TX: ProAir 1 or 2 puffs Q 4-6 hours p.r.n.. Educated that he should not over do with the inhaler. He is advised to continue follow-up with his primary care physician, And he can call for recheck over here as needed. Code(s): J45.909 - Unspecified asthma, uncomplicated Coding Level of Care Code Est Pt Level 3 (42766) Diagnoses Lung nodule R91.1 Bronchial asthma J45.909
== END 2023-09-03 11:16 | disposition home or self-care (01) ==
PROVIDERS: PCP Internal Medicine; Visit Provider Internal Medicine
DX: R91.1 Solitary pulmonary nodule (principal); J45.909 Unspecified asthma, uncomplicated
CPT/HCPCS: 99213

== ENCOUNTER → 2023-09-03 10:36 | Outpatient (BNVA) | payer OTHER, SELFPAY | PROVIDERS: PCP Internal Medicine; Visit Provider Internal Medicine ==

== ENCOUNTER → 2023-09-04 10:12 | Outpatient (REF) | payer OTHER, SELFPAY | LOC: HO.SL 10:12 | PROVIDERS: PCP Internal Medicine; Visit Provider Internal Medicine | DX: G47.33 Obstructive sleep apnea (adult) (pediatric) (principal); R40.0 Somnolence | CPT/HCPCS: 95806 ==

== ENCOUNTER → 2023-09-04 10:24 | Outpatient (BNV) | payer OTHER, SELFPAY | PROVIDERS: PCP Internal Medicine; Visit Provider Internal Medicine | DX: G47.33 Obstructive sleep apnea (adult) (pediatric) (principal) | CPT/HCPCS: 95806 ==

== ENCOUNTER 2024-01-26 10:48 | Outpatient (REF) | payer OTHER, SELFPAY ==
--- NOTE | ~2024-01-26 | US_ITS ---
EXAMINATION: US RETROPERITONEAL LIMITED (RENAL ONLY) CLINICAL INFORMATION: Calculus of kidney. COMPARISON: CT abdomen and pelvis 07/14/2023. Renal ultrasound 01/23/2023. TECHNIQUE: Real-time imaging of the kidneys. FINDINGS: RIGHT KIDNEY: 10.8 x 5.3 x 3.8 cm (SAG x AP x TRV). The kidney is normal in size, contour, and echogenicity. Renal cortical thickness is normal. No calculi or focal parenchymal lesions. No hydronephrosis. LEFT KIDNEY: 11.9 x 5.1 x 4.7 cm (SAG x AP x TRV). The kidney is normal in size, contour, and echogenicity. Renal cortical thickness is normal. No calculi or focal parenchymal lesions. No hydronephrosis. US/US renal BI IMPRESSION: No renal calculi are seen nor were any seen on the prior CT scan or prior renal ultrasounds.
== END 2024-01-26 10:49 | disposition home or self-care (01) ==
LOC: HO.US 10:48
PROVIDERS: PCP Internal Medicine; Visit Provider Nurse Practitioner Family
DX: N20.0 Calculus of kidney (principal)
CPT/HCPCS: 76775

== ENCOUNTER 2024-07-07 10:08 | Outpatient (REF) | payer OTHER, SELFPAY ==
[2024-07-07 12:26] LABS: Alanine Aminotransferase 37 U/L (0-40); Albumin Level 4.7 g/dL (3.5-5.0); Alkaline Phosphatase 63 U/L (39-117); Anion Gap 13 (12-20); Aspartate Amino Transferase 24 U/L (5-37); Bilirubin Total 0.4 mg/dL (0.0-1.0); Blood Urea Nitrogen 12 mg/dL (9-16); Carbon Dioxide 27 mmol/L (22-29); Chloride 104 mmol/L (96-108); Cholesterol 236 mg/dL (<200); Estimated Glomerular Filt Rate > 60; Glucose Fasting 95 mg/dL (60-99); HDL Cholesterol 58 mg/dL (>40); LDL Cholesterol Calculated 158 mg/dL (<100); Potassium 4.6 mmol/L (3.3-5.1); Sodium 139 mmol/L (135-145); Total Protein 7.8 g/dL (6.5-8.0); Triglycerides 103 mg/dL (<150)
== END 2024-07-07 10:09 | disposition home or self-care (01) ==
LOC: HO.LAB 10:08
PROVIDERS: PCP Internal Medicine; Visit Provider Internal Medicine
DX: E78.5 Hyperlipidemia, unspecified (principal)
CPT/HCPCS: 36415; 80053; 80061

== ENCOUNTER 2024-07-20 17:21 | Outpatient (AMB) | payer OTHER, SELFPAY ==
--- NOTE | 2024-07-20 17:23 | A.OFFPC_ITS ---
Vital Signs 07/20/24 17:25 Height 5 ft 8 in Weight 168 lb BMI 25.5 BP 114/80 Blood Pressure Location Lt brachial Position Sitting Intake Visit Reasons: PE Intake Note: Patient here for a physical exam Allied Health Professional Required: No Accompanied by: Self / Same As Patient Allergies No Known Allergies [No Known Allergies*] Allergy (Verified 07/20/24 17:48) Medication List - Last Reconciled 07/20/24 by Preeti Acosta MD albuterol sulfate 90 mcg/actuation (ProAir HFA) 2 puffs inhalation Q4-6H PRN 30 days CPAP autoPAP mode 6-26 cmH2O pantoprazole 40 mg PO DAILY sennosides (senna) 8.6 mg PO BEDTIME Tobacco use date assessed: 07/20/24 Dental Screening Dental Screen Date: 07/20/24 Did you have a dental visit in the last 12 months?: Yes Did you have a dental problem in the last 6 months where you did not have access to dental care?: No Was dental information given to patient?: Patient has dentist HPI HPI Comments History of Present Illness Details This is a 38-year-old male that comes for his physical exam. Has pure hypercholesterolemia and dietary changes were advised. 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 Also complains of low back pain that does not radiate to the legs. Complains of left testicular sensitivity and will be contact his Urologist. [facility] Medical History (Updated 07/20/24 @ 18:55 by Preeti Acosta MD) Bronchial asthma Nephrolithiasis Lung nodule Kidney stone Dyspnea on exertion Post covid-19 condition, unspecified Dizziness Hypovitaminosis D Abdominal bloating Dyslipidemia Constipation by delayed colonic transit COVID-19 Surgical History History of esophagogastroduodenoscopy (EGD) History of umbilical hernia repair Family History Father Diabetes Hypertension Mother Hypertension Diabetes Paternal Grandfather Lung cancer Colon cancer Social History Housing: House Alcohol intake: never Patient Tobacco Use Status: Former Tobacco user Tobacco use type: Cigarette e-Cigarette/Vaping Use: Never Used Second Hand Smoke Exposure: No service: No Current occupational status: employed Current occupational exposures/hazards: No Cognitive needs: No Hearing needs: No Vision needs: No Questionnaire PHQ-9 Over the last 2 weeks, how often have you been bothered by any of the following problems? 1. Little interest or pleasure in doing things: not at all 2. Feeling down, depressed, or hopeless: several days 3. Trouble falling or staying asleep, or sleeping too much: more than half the days 4. Feeling tired or having little energy: several days 5. Poor appetite or overeating: not at all 6. Feeling bad about yourself - or that you are a failure or have let yourself or your family down: not at all 7. Trouble concentrating on things, such as reading the newspaper or watching television: not at all 8. Moving or speaking so slowly that other people could have noticed. Or the opposite - being so fidgety or restless that you have been moving around a lot more than usual: not at all 9. Thoughts that you would be better off or of hurting yourself in some way: not at all Total score: 4 Depression Screening Interpretation: Positive Depression Screening Follow-up: Existing condition and Follow-up Visit Requested Depression Screening Done: Yes 23242 - PHQ-9 Billing: Yes Source: Developed by Drs. Gideon Lawler, April Delacruz, Crescencio Garner and colleagues, with an educational viviane from [employer]. Thrive Questionnaire Date Thrive assessed: 07/20/24 I am a: Patient What is your living situation today?: I have a steady place to live Within the past 12 months, did the food you bought not last and you didn't have the money to get more?: I choose not to answer this question Within the past 12 months, did you worry whether your food would run out before you got money to buy more?: Never true Do you have trouble paying for medicines?: No Do you have trouble getting transportation to medical appointments?: No Do you have trouble paying your heating and electricity bill?: No Do you have trouble taking care of your child, family member or friend?: No Do you have trouble with day-to-day activities such as bathing, preparing meals, shopping, managing finances, etc.?: No Are you currently unemployed and looking for a job?: No Are you interested in more education?: No Please select the resources that you would like help with: None Currently or been in a relationship where the following occur: No concerns reported THRIVE Score: 0 AUDIT C Alcohol Use Questionnaire (AUDIT-C) 1. How often do you have a drink containing alcohol?: Never Total Score: 0 Score Reviewed/Action Taken: No EMILY-7 AMB Questionnaire EMILY-7 Date EMILY - 7 assessed: 07/20/24 Feeling nervous, anxious, or on edge: 0 = Not at all Not being able to stop or control worryin = Several days Worrying too much about different things: 1 = Several days Trouble relaxin = Several days Being so restless that it is hard to sit still: 1 = Several days Becoming easily annoyed or irritable: 1 = Several days Feeling afraid as if something awful might happen: 1 = Several days Total EMILY-7 score (0-4 normal; 5-9 mild; 10-14 moderate; 15-21 severe): 6 Source: Developed by Drs. Gdieon Lawler, April Delacruz, Crescencio Garner and colleagues, with an educational viviane from [employer]. Review of Systems Const All systems reviewed & are unremarkable except as noted in HPI and below Card Denies chest pain at rest, Denies chest pain with activity, Denies edema, Denies irregular heart rhythm, Denies claudication, Denies dyspnea, Denies dyspnea on exertion, Denies orthopnea, Denies paroxysmal nocturnal dyspnea and Denies slow heart rate Resp Denies cough, Denies dyspnea and Denies dyspnea on exertion GI Denies abdominal pain, Denies change in bowel habits, Denies excessive flatus, Denies nausea and Denies vomiting Physical exam (Primary Care) Vital Signs: Last Vital Signs BP 114/80 07/20/24 17:25 BMI result Body Mass Index 25.5 Tobacco/Smoking Status: Tobacco use Status Tobacco use date assessed 07/20/24 07/20/24 17:30 Patient Tobacco Use Status Former Tobacco user 07/20/24 17:30 Tobacco use type Cigarette 07/20/24 17:30 e-Cigarette/Vaping Use Never Used 07/20/24 17:30 PHQ-9: PHQ-9 Score PHQ-9: Total score 4 07/20/24 17:51 Depression Screening Interpretation: Positive Depression Screening Follow-up: Existing condition and Follow-up Visit Requested Thrive Assessment: Date of Thrive Assessment Date Thrive assessed 07/20/24 07/20/24 17:30 Currently or been in a relationship where the following occur: No concerns reported [facility] Head: Yes normal to inspection, Yes normocephalic and Yes atraumatic Ears: external ears normal Eyes General: appearance normal, both eyes and all related structures Eyelids: Yes eyelids normal Conjunctivae: conjunctivae normal Neck Neck: Yes normal visual inspection and Yes supple Resp Effort & Inspection: normal respiratory effort Auscultation: clear to auscultation bilaterally Cardio Jugular venous distension: no JVD Rate: regular rate Rhythm: regular rhythm Heart sounds: S1 normal heart sound present and S2 normal heart sound present GI Inspection: Yes normal to inspection Palpation (GI): Soft to palpation and nontender Auscultation: normal bowel sounds Skin General skin exam: no rashes or lesions noted Neuro General: no focal motor deficits Extrem General: Yes full ROM Psych Appearance: grossly normal Assessment and Plan Assessment & Plan (1) Physical exam: Code(s): Z00.00 - Encounter for general adult medical examination without abnormal findings Plan: Repeat in a year. (2) Pure hypercholesterolemia: Code(s): E78.00 - Pure hypercholesterolemia, unspecified Plan: Referred to boilermaker apprentice. (3) Lumbar pain: Code(s): M54.50 - Low back pain, unspecified Plan: X-ray order. Orders: Orders XR lumbar spine 2-3V Today E78.00 - Pure hypercholesterolemia, unspecified, M54.50 - Low back pain, unspecified, Z00.00 - Encounter for general adult medical examination without abnormal findings Referrals Nutrition/Dietitian Referral E78.00 - Pure hypercholesterolemia, unspecified Medications: Refilled pantoprazole take one tablet half an hour before breakfast 40 mg PO DAILY 90 tabs 2RF K21.9 - Gastro-esophageal reflux disease without esophagitis Coding Level of Care Code Est Pt Level 3 (63399) Est Pt Prev Care 18-39y(69356) Diagnoses Physical exam Z00.00 Pure hypercholesterolemia E78.00 Lumbar pain M54.50 Time Spent (min) 35
[2024-07-20 17:25] VITALS: BP 114/80; BMI 25.5
== END 2024-07-20 18:01 | disposition home or self-care (01) ==
PROVIDERS: PCP Internal Medicine; Visit Provider Internal Medicine
DX: Z00.00 Encounter for general adult medical examination without abnormal findings (principal); E78.00 Pure hypercholesterolemia, unspecified; M54.50 Low back pain, unspecified
CPT/HCPCS: 99213; 99395

== ENCOUNTER 2024-09-27 09:32 | Outpatient (AMB) | payer OTHER, SELFPAY ==
--- NOTE | 2024-09-27 09:35 | A.OFFVIS_ITS ---
VS Expanded 09/27/24 09:36 09/27/24 13:25 Height 5 ft 8 in 5 ft 8 in Weight 170 lb 6.677 oz 170 lb BMI 25.9 25.8 Intake Visit Reasons: Pure hypercholesterolemia, unspecified Allergies No Known Allergies [No Known Allergies*] Allergy (Verified 07/20/24 17:48) Nutrition Presentation Details: Pt presents for MNT for hypercholesterolemia. Pt was referred by PCP. food frequency fried foods 4x/wk fruits: 0-1/d milk: 2-3 x/day vegetables: 0-1/wk starches > 20/d fish :1 x/wk physical activity: sedentary ETOH: denies smoking Yes BS Monitoring Most Recent Diabetes Results: Cholesterol 236 mg/dL (<200) H 07/07/24 HDL Cholesterol 58 mg/dL (>40) 07/07/24 Triglycerides 103 mg/dL (<150) 07/07/24 Creatinine 1.06 mg/dL (0.5-1.4) 07/07/24 Blood Urea Nitrogen 12 mg/dL (9-16) 07/07/24 Sodium 139 mmol/L (135-145) 07/07/24 Potassium 4.6 mmol/L (3.3-5.1) 07/07/24 Chloride 104 mmol/L (96-108) 07/07/24 Carbon Dioxide 27 mmol/L (22-29) 07/07/24 Calcium 10.0 mg/dL (8.4-10.2) 07/07/24 AST 24 U/L (5-37) 07/07/24 ALT 37 U/L (0-40) 07/07/24 Total Protein 7.8 g/dL (6.5-8.0) 07/07/24 Albumin 4.7 g/dL (3.5-5.0) 07/07/24 UXJ-Ooaymdn-Sf.Jeor Equation Height: 5 ft 8 in Weight: 170 lb Resting Metabolic Rate: 1667.88 Calculated Activity Level: Sedentary Calories Needed to Maintain Weight: Diagnosis Nutrition problem #1: food nutri know defi As related to (etiology) #1: diagnosis As evidenced by (sign/symptom) #1: knowledge deficit of diet Monitoring/Goals Nutrition problem monitoring: level of knowledge/skill Learning/Education Readiness to learn: good [facility] Medical History Bronchial asthma Nephrolithiasis Lung nodule Kidney stone Dyspnea on exertion Post covid-19 condition, unspecified Dizziness Hypovitaminosis D Abdominal bloating Dyslipidemia Constipation by delayed colonic transit COVID-19 Surgical History History of esophagogastroduodenoscopy (EGD) History of umbilical hernia repair Family History Father Diabetes Hypertension Mother Hypertension Diabetes Paternal Grandfather Lung cancer Colon cancer Social History Housing: House Alcohol intake: never Patient Tobacco Use Status: Former Tobacco user Tobacco use type: Cigarette e-Cigarette/Vaping Use: Never Used Second Hand Smoke Exposure: No service: No Current occupational status: employed Current occupational exposures/hazards: No Cognitive needs: No Hearing needs: No Vision needs: No Assessment & Plan Assessment & Plan (1) Pure hypercholesterolemia: Code(s): E78.00 - Pure hypercholesterolemia, unspecified Category: Medical Plan: Wt: 77 Kg ( 10/10 ) Est kcal needs as per MSJ: 2000 (40% carb, 30% protein/fat) Est fluid needs as per 25-30 ml/d: 2300 Est prot per day as per 1 g/kg bw: 77 Recommend fiber intake : 8-10 g per day and gradually increase to 25-28 g per day for women and 35-38 g for men or as tolerated Recommend sodium intake per day : less than 1500 mg less than 2000 mg Educated patient on: ( R = reviewed V = verbalizes understanding N/R = needs review N/A = not applicable * Food sources of carbohydrate, adequate serving sizes and its role in various health conditions: R * Differences between complex carbohydrates a simple carbohydrates, role of fiber in diet: R V N/R * Lean protein sources of foods: R * Differences between types of fats and role in diet (mono on saturated fat fatty acids, saturated fatty acids, trans fats): R basic * Food sources of sodium in salt and healthy modifications for heart health in kidney health: R V R/V * Vitamins and minerals: R V N/R * Healthy plate method concept: R * Physical activity: Benefits a precaution: R V N/R Patient Instructions: Include fish at least twice a week , replacing beef/pork see NCM -low cholesterol food concepts Coding Level of Care Code Nutr Indiv Intake (25913) Diagnoses Pure hypercholesterolemia E78.00 Time Spent (min) 30
[2024-09-27 09:36] VITALS: BMI 25.9
[2024-09-27 13:25] VITALS: BMI 25.8
== END 2024-09-27 10:18 | disposition home or self-care (01) ==
PROVIDERS: PCP Internal Medicine; Visit Provider Dietitian, Registered
DX: E78.00 Pure hypercholesterolemia, unspecified (principal)

== ENCOUNTER → 2024-09-27 09:32 | Outpatient (BNVA) | payer OTHER, SELFPAY | PROVIDERS: PCP Internal Medicine; Visit Provider Dietitian, Registered | DX: E78.00 Pure hypercholesterolemia, unspecified (principal); Z71.3 Dietary counseling and surveillance | CPT/HCPCS: 97802 ==

== ENCOUNTER 2025-03-28 10:04 | Outpatient (AMB) | payer OTHER, SELFPAY ==
--- NOTE | 2025-03-28 10:13 | MHC.OFFVIS ---
Vital Signs 03/28/25 10:14 Height 5 ft 8 in Weight 176 lb 5.917 oz BMI 26.8 BP 110/78 Blood Pressure Location Lt brachial Pulse 82 Pulse Source Pulse Oximeter Pulse Oximetry (%) 97 Oxygen Delivery Method Room Air Intake Visit Reasons: dyspnea Intake Note: pt is here for follow up and states he feels good, sometimes he feels out of breath on occasions and this worries him. has cpap at home but is struggling wit usage. Will need in person training and [place] [facility] [place] At night he does get out of breath easliy, and walking short distances he feels suffocating., example of stairs. Assembly Detailer Required: Yes Assembly Detailer Services: Assembly Detailer Present Assembly Detailer Name: Farhana [id number] Allergies No Known Allergies [No Known Allergies*] Allergy (Verified 03/28/25 10:33) Medication List - Last Reconciled 03/28/25 by Lucía Guzman MD albuterol sulfate 90 mcg/actuation (ProAir HFA) 2 puffs inhalation Q4-6H PRN 30 days CPAP autoPAP mode 6-26 cmH2O pantoprazole 40 mg PO DAILY sennosides (senna) 8.6 mg PO BEDTIME PRN Do you need a note to return to daycare/school/sports/work: No HPI HPI dyspnea: Details: This 31 years old, Italian-speaking gentleman,, complains of intermittent bouts of shortness of breath, but no clear-cut wheezing. He had pulmonary function test on 08/01/2022, in our office . And the results were perfectly normal. He had been prescribed albuterol HFA to use only p.r.n.. Which he uses rarely. Luckily he has had no acute respiratory infection. In year 2022 he had a home-based sleep study, with the complaint of frequent awakening at night. The study was positive for moderately severe obstructive sleep apnea, and primary care physician of Je had ordered a CPAP equipment. He used it only once or twice and did know how to use it properly. So for practical purposes he has really not use the CPAP. Complains of frequent awakening at night, and tired feeling during the daytime. He does have mild intermittent nasal congestion. Is weight is normal, and the diagnosed KHADRA is secondary to Anatomical abnormality in the Josette dentalsystem He claims that nobody has ever explained to him how to use the CPAP properly and he would like to have some Education and training. [facility] Medical History Bronchial asthma Nephrolithiasis Lung nodule Kidney stone Dyspnea on exertion Post covid-19 condition, unspecified Dizziness Hypovitaminosis D Abdominal bloating Dyslipidemia Constipation by delayed colonic transit COVID-19 Surgical History History of esophagogastroduodenoscopy (EGD) History of umbilical hernia repair Family History Father Diabetes Hypertension Mother Hypertension Diabetes Paternal Grandfather Lung cancer Colon cancer Social History Housing: House Alcohol intake: never Patient Tobacco Use Status: Former Tobacco user Tobacco use type: Cigarette e-Cigarette/Vaping Use: Never Used Second Hand Smoke Exposure: No service: No Current occupational status: employed Current occupational exposures/hazards: No Cognitive needs: No Hearing needs: No Vision needs: No Review of Systems Const All systems reviewed & are unremarkable except as noted in HPI and below Eyes Reports no additional complaints ENT Reports no additional complaints Card Denies chest pain, Denies irregular heart rhythm and Denies leg edema Resp Reports as per HPI GI Reports constipation Reports no additional complaints Musc Reports no additional complaints Skin/Breast Reports system reviewed and no additional complaints, except as documented Neuro Reports no additional complaints Psych Reports no additional complaints Physical Exam Vital Signs: Last Vital Signs Pulse 82 03/28/25 10:14 BP 110/78 03/28/25 10:14 Pulse Ox 97 03/28/25 10:14 Oxygen Delivery Method Room Air 03/28/25 10:14 BMI result Body Mass Index 26.8 Const General: healthy appearing, comfortable, no acute distress, alert and awake Orientation/consciousness: patient oriented x3 HEENT Head: Yes normal to inspection General nose exam: No nasal polyps present and No nasal discharge present Face and sinus: Yes sinuses nontender Mouth: oropharynx normal Throat: Yes posterior oropharynx normal Eyes General: appearance normal, both eyes and all related structures Neck Neck: Yes normal visual inspection, Yes no lymphadenopathy, Yes trachea midline and Yes no JVD Thyroid: Thyroid normal Chest Chest palpation & inspection: normal inspection of the chest, normal palpation of entire chest wall and no tenderness Resp Effort & Inspection: normal respiratory effort Auscultation: clear to auscultation bilaterally, no crackles, no rales and no wheezes Cardio Palpation: normal PMI Rate: regular rate Rhythm: regular rhythm Heart sounds: no gallops and no murmurs Peripheral pulses: Peripheral pulses 2+ throughout GI Palpation (GI): Soft to palpation, nontender, No hepatosplenomegaly present and no masses Auscultation: normal bowel sounds Back/Spine/Pelvis Thoracic/Lumbar Spine: thoracic and lumbar spine normal to inspection Skin General skin exam: no rashes or lesions noted Neuro General: patient oriented x3 and no focal motor deficits Cranial nerves: Yes CN's II-XII intact bilaterally Extrem General: Yes normal to inspection, Yes no clubbing, cyanosis or edema and Yes no calf tenderness Psych Appearance: grossly normal and well kempt Speech and movement: Normal speech and movement present Assessment & Plan Assessment & Plan (1) Bronchial asthma: Comment: Occasional cough with shortness of breath is probably due to mild intermittent bronchial asthma. PFT ON 08/01/2022 WAS ESSENTIALLY NORMAL. Code(s): J45.909 - Unspecified asthma, uncomplicated Category: Medical Plan: ONCE AGAIN EXPLAINED ABOUT THE NORMAL PULMONARY FUNCTION TEST BACK IN 2021. HIS SHORTNESS OF BREATH ON EXERTION ONLY OFF AND ON IS PROBABLY FUNCTIONAL. HE DOES HAVE ALBUTEROL ON HAND AND IF HE FEELS VERY SHORT OF BREATH HE COULD USE 2 PUFFS . ONLY P.R.N. (2) Lung nodule: Comment: 11/20/2022 Dr. 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 Chest x-ray shows a small linear scar in the left lower lobe which represents the scar from surgery, Explained to the patient. About this abnormal finding. No further action needed Code(s): R91.1 - Solitary pulmonary nodule Category: Medical Plan: ONCE AGAIN EXPLAINED TO THE PATIENT THAT THE NODULE WAS BENIGN AND IT WAS TAKEN CARE OF SURGICAL. (3) Obstructive sleep apnea: Comment: DIAGNOSED TO HAVE MODERATELY SEVERE OBSTRUCTIVE SLEEP APNEA ON BASIS OF HOME SLEEP STUDY ON 09/10/2023. PATIENT IS PCP DR. GWENDOLYN DO , HAD ORDERED A CPAP DEVICE WITH AUTO PAP MODE, HE USED ONLY 1 TIME, AND AFTERWARDS DID NOT UNDERSTAND HOW TO USE IT PROPERLY. TODAY HE IS COMPLAINING OF HAVING VERY POOR SLEEP, DUE TO FREQUENT AWAKENINGS. HE IS EXPRESSING THE NEED TO HAVE EDUCATION AND TRAINING FOR USING THE CPAP PROPERLY. Code(s): G47.33 - Obstructive sleep apnea (adult) (pediatric) Category: Medical Plan: WILL CONTACT HIS DME PROVIDER, AND SEE IF THEY CAN PROVIDE HIM NECESSARY EDUCATION, OTHERWISE THE HE CAN BRING HIS CPAP DEVICE HERE TO MY OFFICE AND WE WILL TRY TO EXPLAIN TO HIM HOW TO USE IT PROPERLY Medications: Changed From sennosides (senna) 8.6 mg PO BEDTIME 30 tabs 1RF constipation To sennosides (senna) 8.6 mg PO BEDTIME PRN Coding Level of Care Code Est Pt Level 3 (62987) Diagnoses Bronchial asthma J45.909 Lung nodule R91.1 Obstructive sleep apnea G47.33
[2025-03-28 10:14] VITALS: BP 110/78; PULSE 82; O2SAT 97; BMI 26.8
== END 2025-03-28 10:32 | disposition home or self-care (01) ==
LOC: HO.HPS 10:09
PROVIDERS: PCP Internal Medicine; Visit Provider Internal Medicine
DX: J45.909 Unspecified asthma, uncomplicated (principal); R91.1 Solitary pulmonary nodule; G47.33 Obstructive sleep apnea (adult) (pediatric)
CPT/HCPCS: 99213

== ENCOUNTER → 2025-03-28 10:04 | Outpatient (BNVA) | payer OTHER, SELFPAY | PROVIDERS: PCP Internal Medicine; Visit Provider Internal Medicine ==

== ENCOUNTER 2025-05-11 13:11 | Outpatient (AMB) | payer OTHER, SELFPAY ==
--- NOTE | 2025-05-11 13:18 | A.OFFVIS_ITS ---
Vital Signs 05/11/25 13:19 Height 5 ft 8 in Weight 176 lb BMI 26.8 BP 120/86 Blood Pressure Location Rt brachial Position Sitting Pulse 88 Pulse Source Pulse Oximeter Pulse Oximetry (%) 96 Oxygen Delivery Method Room Air Intake Visit Reasons: Abdominal pain Intake Note: Established patient to re/est care. SANDY 07/2022. GERD mgmt. CC; C.O. bloating and distention recent onset as well as exacerbation of hemorrhoids with occasional rectal pain. Pt does report BRB GA intermittently in small to moderate amounts. Pt confirms that his PPI is still controlling his GERD well. Rn Telephonic Required: Yes Rn Telephonic Services: Rn Telephonic Offered & Declined Accompanied by: Self / Same As Patient Allergies No Known Allergies (No Known Allergies*) Allergy (Verified 05/11/25 13:19) HPI HPI Abdominal pain: Details: LAST VISIT: 07/24/2022 Constipation by delayed colonic transit Start docusate sodium to help him move his bowels better. Increase fiber, fluids and activity to promote better bowel motility GERD (gastroesophageal reflux disease) No inflammation found on esophageal biopsy. Symptoms no acid reflux. Inactive c hronic inflammation found in patient stomach and duodenum. Will start patient on pantoprazole in the morning and Pepcid at night time. Discussed with patient avoiding dietary triggers and late night snacking. Staying upright for minimum 3 hours after meals discussed with patient. There was no H pylori according to biopsy results. Patient also has had chronic cough for the last few months. History of COVID few times in the last year and a half, however patient states that he has been vaccinated. Patient will be following up with pulmonology for this. Hemorrhoid Internal hemorrhoids found on colonoscopy. Occasional blood on the tissue after bowel movements when he wipes. Proctosol ordered. Patient denies any melena, hematochezia, unintentional weight loss or ribbon like stools. Status post colonoscopy Patient denies any ill effects from the prep, anesthesia or procedure itself. Colonoscopy clean in no polyps found. Diverticulosis and internal hemorrhoids found. Patient can return for colorectal screen when he turns 46. Sooner if he is symptomatic. I will see patient in the office in 3 months to evaluate his treatment for acid reflux. He is agreeable to this plan and verbalizes understanding of instructions. He was given the opportunity to ask questions all questions answered. ? Thank you for allowing me to participate in his care Plan Medications New famotidine 40 mg PO BEDTIME 90 tabs 3RF K21.9 pantoprazole take one tablet half an hour before breakfast 40 mg PO DAILY 90 tabs 2RF K21.9 hydrocortisone 2.5% (Proctosol HC) 1 appl GA BID-QID PRN 30 grams 2RF hemorrhoids K64.9 docusate sodium 100 mg PO DAILY 30 caps 3RF K59.00 TODAY'S VISIT: Patient is here today for requested visit. Patient reports increased abdominal bloating postprandially. Patient reports that sometimes no matter what he eats he feels like he gets bloated. He is moving his bowels, however he does not feel like he empties them completely. Currently is taking Senokot as needed. Symptoms of acid reflux are suppressed with pantoprazole. Patient denies any dyspepsia, dysphagia or odynophagia. Patient reports occasional blood in his stools. Patient does admit to straining occasionally. History of hemorrhoids in the past. Patient did use Proctosol with resolved in the past. Last colonoscopy was in June of 2022. Normal colonoscopy and recommendation was made for colonoscopy to be repeated in 10 years, however patient should go for colonoscopy at age 46 for screening as recommended by [facility] guidelines. [facility] Medical History (Updated 05/11/25 @ 21:15 by Trinidad Tripp, [facility]) Bronchial asthma Nephrolithiasis Lung nodule Kidney stone Dyspnea on exertion Post covid-19 condition, unspecified Dizziness Hypovitaminosis D Abdominal bloating Dyslipidemia Constipation by delayed colonic transit COVID-19 Surgical History History of esophagogastroduodenoscopy (EGD) History of umbilical hernia repair Family History Father Diabetes Hypertension Mother Hypertension Diabetes Paternal Grandfather Lung cancer Colon cancer Social History Housing: House Alcohol intake: never Patient Tobacco Use Status: Former Tobacco user Tobacco use type: Cigarette e-Cigarette/Vaping Use: Never Used Second Hand Smoke Exposure: No service: No Current occupational status: employed Current occupational exposures/hazards: No Cognitive needs: No Hearing needs: No Vision needs: No Review of Systems Const Denies weight gain and Denies weight loss ENT Reports no additional complaints, Denies dysphagia and Denies odynophagia Card Reports no additional complaints Resp Reports no additional complaints and Reports cough (dry) GI Denies abdominal pain, Denies belching, Denies melena, Reports bloating, Denies change in bowel habits, Reports constipation, Denies dysphagia, Denies excessive flatus, Denies dyspepsia, Denies heartburn, Denies diarrhea, Denies loose stools, Denies nausea, Denies odynophagia and Denies vomiting Reports no additional complaints Musc Reports no additional complaints Neuro Reports no additional complaints Psych Reports no additional complaints Endo Reports no additional complaints Physical Exam Vital Signs: Last Vital Signs Pulse 88 05/11/25 13:19 BP 120/86 05/11/25 13:19 Pulse Ox 96 05/11/25 13:19 Oxygen Delivery Method Room Air 05/11/25 13:19 BMI result Body Mass Index 26.8 Const General: healthy appearing, no acute distress and well developed Nutritional Appearance: well nourished Orientation/consciousness: patient oriented x3 Resp Effort & Inspection: normal respiratory effort, able to speak in complete sentences, no tracheal deviation and symmetric chest movement Auscultation: clear to auscultation bilaterally Cardio Rate: regular rate GI Inspection: Yes normal to inspection and No distended Palpation (GI): Soft to palpation, not firm, nontender and No hepatosplenomegaly present Auscultation: normal bowel sounds General: Yes no CVA tenderness Back/Spine/Pelvis Back: no CVA tenderness Skin General skin exam: elasticity normal, turgor normal and dry skin Neuro General: patient oriented x3 Psych Appearance: grossly normal Mental Status: mental status grossly normal Assessment & Plan Assessment & Plan (1) Constipation by delayed colonic transit: Code(s): K59.01 - Slow transit constipation Category: Medical (2) Abdominal bloating: Code(s): R14.0 - Abdominal distension (gaseous) Category: Medical Plan Patient reports abdominal bloating postprandially sometimes does not matter what he eats. Occasional epigastric pain more to his left upper quadrant. Will check lipase and liver panel. He can take simethicone as needed. Continue pa ntoprazole as it is helping him to control his reflux. Avoid dietary triggers and late night snacking. Staying upright for minimum 3 hours after meals discussed with patient. Patient will take senna 2 tablets every evening. Patient will call our office if he will continue to have symptoms. Follow-up in 3 months, sooner on as needed basis. He is agreeable to this plan and verbalizes understanding of instructions. He was given the opportunity to ask questions and all questions answered. Thank you for allowing me to participate in his care Orders: Orders Lipase Today R10.9 - Unspecified abdominal pain Liver Panel Today R74.01 - Elevation of levels of liver transaminase levels US abdomen complete Today R10.9 - Unspecified abdominal pain Medications: New simethicone (Gas Relief (simethicone)) 125 mg PO TID-QID PRN 120 caps 2RF abdominal distention R14.0 - Abdominal distension (gaseous) Changed From sennosides (senna) 8.6 mg PO BEDTIME PRN constipation To sennosides (senna) 17.2 mg (2 x 8.6 mg) PO BEDTIME 60 tabs 2RF constipation Refilled pantoprazole take one tablet half an hour before breakfast 40 mg PO DAILY 90 tabs 2RF K21.9 - Gastro-esophageal reflux disease without esophagitis Coding Level of Care Code Est Pt Level 3 (81857) Diagnoses Constipation by delayed colonic transit K59.01 Abdominal bloating R14.0 Time Spent (min) 30 Comment 20 minutes spent with patient and additional 10 minutes spent reviewing his records
[2025-05-11 13:19] VITALS: BP 120/86; PULSE 88; O2SAT 96; BMI 26.8
--- OUTSIDE RECORDS SUMMARY | 2025-05-11 15:28 | XMS_ITS | Clinical Summary ---
Author Organization [facility] ity Address [address] [place] [address] Care Team Providers Care Content Analyst Name Role Phone Preeti Acosta MD Primary Care Provider [phone] Social History Tobacco Use Types Packs/Day Years Used Date Smoking Tobacco: Never Assessed Sex and Gender Information Value Date Recorded Sex Assigned at Not on file Legal Sex Male 8:58 PM EST Gender Identity Not on file Sexual Orientation Not on file Last Filed Vital Signs Vital Sign Reading Time Taken Comments Blood Pressure 141/85 12/03/2022 2:02 PM EST Sit ting L Arm Pulse 111 12/03/2022 2:02 PM EST Temperature - - Respiratory Rate - - Oxygen Saturation - - Inhaled Oxygen Concentration - - Weight 76.2 kg (168 lb) 12/03/2022 2:02 PM EST Height 172.7 cm (5' 8 ) 12/03/2022 2:02 PM EST Body Mass Index 25.54 12/03/2022 2:02 PM EST Plan of Treatment Health Maintenance Due Date Last Done Comments DTaP,Tdap,and Td Vaccines (1 - Tdap) 2005 Hepatitis B Vaccines (1 of 3 - 19+ 3-dose series) 2005 Cholesterol Screening (Lipid Panel) 12/12/2023 Depression Screening 12/12/2023 HIV Screening 12/12/2023 Hepatitis C Screening 12/12/2023 Social Influencers of Health Screening 12/12/2023 COVID-19 Vaccine ( - 2023-2 5 season) 2024 Influenza Vaccine (Season Ended) 2025 HIB Vaccines Aged Out No longer eligi ble based on patient's age to complete this topic HPV Vaccines Aged Out No longer eligi ble based on patient's age to complete this topic Hepatitis A Vaccines Aged Out No long er eligible based on patient's age to complete this topic IPV Vaccines Aged Out No longer eligi ble based on patient's age to complete this topic MMR Vaccines Aged Out No longer eligi ble based on patient's age to complete this topic Meningococcal ACWY Vaccine Aged Out N o longer eligible based on patient's age to complete this topic Meningococcal B Vaccine Aged Out No l onger eligible based on patient's age to complete this topic Pneumococcal Vaccine: Pediat rics (0 to 5 Years) and At-Risk Patients (6 to 64 Years) Aged Out No longer eligible b ased on patient's age to complete this topic RSV Immunization Patients Un yoana 20 months Aged Out No longer eligible b ased on patient's age to complete this topic Varicella Vaccines Aged Out No longer eligible based on patient's age to complete this topic Care Teams Content Analyst Relationship Specialty Start Date End Date Preeti Acosta MD [address] [place] [address] , [address] [place] [address] Physician Associ D/B/A: [facility] [place] PCP - General 11/01/22
== END 2025-05-11 13:46 | disposition home or self-care (01) ==
LOC: HO.HGI 13:12
PROVIDERS: PCP Internal Medicine; Visit Provider Nurse Practitioner Family
DX: K59.01 Slow transit constipation (principal); R14.0 Abdominal distension (gaseous)
CPT/HCPCS: 99213

== ENCOUNTER 2025-05-24 11:43 | Outpatient (REF) | payer SELFPAY ==
--- OUTSIDE RECORDS SUMMARY | 2025-05-24 12:45 | XMS_ITS | Clinical Summary ---
Author Organization [facility] ity Address [address] [place] [address] Care Team Providers Care Customer Experience Associate Name Role Phone Preeti Acosta MD Primary Care Provider [phone] Social History Tobacco Use Types Packs/Day Years [...] - 2023-2 5 season) 2024 Influenza Vaccine (#1) 2025 HIB Vaccines Aged Out No longer [...] 5 Years) and At-Risk Patients (6 to 49 Years) Aged Out No longer eligible b ased on patient's age to complete this topic RSV Immunization Patients Un yoana 20 months Aged Out No longer eligible b ased on patient's age to complete this topic Varicella Vaccines Aged Out No longer eligible based on patient's age to complete this topic Care Teams Customer Experience Associate Relationship Specialty Start Date End Date Preeti Acosta MD [address] [place] [address] , [address] [place] [address] Physician Associ D/B/A: [facility] [place] PCP - General 11/01/22
[2025-05-24 13:08] LABS: Alanine Aminotransferase 33 U/L (0-40); Albumin Level 4.8 g/dL (3.5-5.0); Alkaline Phosphatase 63 U/L (39-117); Aspartate Amino Transferase 26 U/L (5-37); Lipase 29 U/L (8-78); Total Protein 7.6 g/dL (6.5-8.0)
== END 2025-05-24 11:44 | disposition home or self-care (01) ==
LOC: HO.LAB 11:43
PROVIDERS: PCP Internal Medicine; Visit Provider Nurse Practitioner Family
DX: R10.9 Unspecified abdominal pain (principal); R74.01 Elevation of levels of liver transaminase levels
CPT/HCPCS: 36415; 80076; 83690

== ENCOUNTER 2025-06-15 10:31 | Outpatient (REF) | payer OTHER, SELFPAY ==
--- NOTE | ~2025-06-15 | US_ITS ---
CLINICAL HISTORY: R10.9 - Unspecified abdominal pain US abdomen complete Comparison: None provided Findings: The visualized pancreas is normal. The aorta and inferior vena cava are normal caliber. The liver is normal in size with increase of echogenicity. There is no intrahepatic bile duct dilatation. The common duct is 2.0 mm in diameter. No gallstones in the gallbladder. Adenomyomatosis. There is no sonographic Washburn sign. The main portal vein is antegrade. The right kidney is 10.2 cm in length. The left kidney is 12.4 cm in length. The spleen is normal. No ascites. IMPRESSION: Hepatic steatosis. Adenomyomatosis of the gallbladder. This document has been electronically signed by: Chiki Montoya MD on 06/15/2025 16:45:50
--- OUTSIDE RECORDS SUMMARY | 2025-06-15 11:27 | XMS_ITS | Clinical Summary ---
Author Organization [facility] [employer] [facility] ity Address [address] [place] [address] Care Team Providers Care Network Management Specialist Name Role Phone Preeti Acosta MD Primary Care Provider [phone] Social History Tobacco Use Types Packs/Day Years [...] series) 2005 Cholesterol Screening (Lipid Panel) 12/12/2023 HIV Screening 12/12/2023 Hepatitis C Screening 12/12/2023 Social Influencers of Health Screening 12/12/2023 COVID-19 Vaccine (1 - 2023-2 5 season) 2024 Depression Screening 11/17/2024 Influenza Vaccine (#1) 2025 HIB Vaccines Aged [...] age to complete this topic Care Teams Network Management Specialist Relationship Specialty Start Date End Date Preeti Acosta MD [address] [place] [address] , [address] [place] [address] Physician Associ D/B/A: [facility] [place] PCP - General 11/01/22
== END 2025-06-15 10:32 | disposition home or self-care (01) ==
LOC: HO.US 10:31
PROVIDERS: PCP Internal Medicine; Visit Provider Nurse Practitioner Family
DX: R10.9 Unspecified abdominal pain (principal)
CPT/HCPCS: 76700

== ENCOUNTER → 2025-06-15 10:32 | Outpatient (BNV) | payer OTHER, SELFPAY | PROVIDERS: PCP Internal Medicine; Visit Provider Nuclear Medicine | DX: K76.0 Fatty (change of) liver, not elsewhere classified (principal) | CPT/HCPCS: 76700 ==

== ENCOUNTER 2025-07-21 08:47 | Outpatient (REF) | payer OTHER, SELFPAY | END 2025-07-21 08:48 | disposition home or self-care (01) | LOC: HO.LAB 08:47 | PROVIDERS: PCP Internal Medicine; Visit Provider Nurse Practitioner Family | DX: N20.0 Calculus of kidney (principal); R31.29 Other microscopic hematuria; N50.812 Left testicular pain; Z13.89 Encounter for screening for other disorder; Z79.899 Other long term (current) drug therapy | CPT/HCPCS: 81003; 88112 ==

== ENCOUNTER 2025-07-21 08:47 | Outpatient (AMB) | payer OTHER, SELFPAY ==
--- NOTE | 2025-07-21 08:52 | A.OFFVIS_ITS ---
Intake Visit Reasons: calculus of kidney/US Intake Note: patient presents today for: calculus of kidneys urology medications: none blood thinners: none imaging done: 01/26/24 Ton Cylinder Inspector Required: No Accompanied by: Self / Same As Patient Allergies No Known Allergies (No Known Allergies*) Allergy (Verified 07/21/25 09:23) Medication List - Last Reconciled 07/21/25 by IRENE Love albuterol sulfate 90 mcg/actuation (ProAir HFA) 2 puffs inhalation Q4-6H PRN 30 days CPAP autoPAP mode 6-26 cmH2O pantoprazole 40 mg PO DAILY sennosides (senna) 17.2 mg (2 x 8.6 mg) PO BEDTIME simethicone (Gas Relief (simethicone)) 125 mg PO TID-QID PRN HPI Comments Details: Je is a pleasant 39-year-old male patient of Dr. Murillo. He presents to the office today for follow-up of his nephrolithiasis. In discussion with the patient today he reports to be doing and feeling well. Recent abdominal ultrasound results reviewed with the patient today bilateral kidneys are normal. He does report noting another episode of potential epididymo-orchitis 4 months ago at which time he underwent STD evaluation and everything was noted to be within normal limits. He is sexually active and attempts to use protection during intercourse however at times reports he does not. We did discuss importance of utilizing protection for overall health and well-being. He also reports noting episodes of balanitis. We did discuss proper care. Patient reports he is uncircumcised. All questions were answered. We also discussed worsening symptoms. He denies urinary urgency, urinary frequency, incontinence, nocturia, hematuria, dysuria, foul smelling urine, changes to urinary stream, flank pain, fever, and or chills. He is happy with his current voiding parameters. He reports testicular discomfort he had been experiencing has subsided. In office urinalysis results reviewed with the patient today. assessment offered however deferred. He discusses his recent travel to [facility]. He otherwise offers no other issues or concerns at this time. [facility] Medical History Bronchial asthma Nephrolithiasis Lung nodule Kidney stone Dyspnea on exertion Post covid-19 condition, unspecified Dizziness Hypovitaminosis D Abdominal bloating Dyslipidemia Constipation by delayed colonic transit COVID-19 Surgical History History of esophagogastroduodenoscopy (EGD) History of umbilical hernia repair Family History Father Diabetes Hypertension Mother Hypertension Diabetes Paternal Grandfather Lung cancer Colon cancer Social History Housing: House Alcohol intake: never Patient Tobacco Use Status: Former Tobacco user Tobacco use type: Cigarette e-Cigarette/Vaping Use: Never Used Second Hand Smoke Exposure: No service: No Current occupational status: employed Current occupational exposures/hazards: No Cognitive needs: No Hearing needs: No Vision needs: No Review of Systems Const All systems reviewed & are unremarkable except as noted in HPI and below Physical Exam Const General: cooperative, healthy appearing, comfortable, no acute distress, well developed, alert and awake Orientation/consciousness: patient oriented x3 Limitations: no limitations HEENT Head: Yes normal to inspection, Yes normocephalic and Yes atraumatic Ears: hearing grossly normal bilaterally Eyes General: appearance normal, both eyes and all related structures Neck Neck: Yes normal visual inspection and Yes trachea midline Chest Chest palpation & inspection: normal inspection of the chest Resp Effort & Inspection: normal respiratory effort and able to speak in complete sentences Cardio Rate: regular rate GI Inspection: Yes normal to inspection General: Yes no CVA tenderness Back/Spine/Pelvis Back: no CVA tenderness Skin General skin exam: no rashes or lesions noted Neuro General: patient oriented x3 Extrem General: Yes normal to inspection Psych Appearance: grossly normal and well kempt Mental Status: mental status grossly normal Speech and movement: Normal speech and movement present and Clear speech present Affect: normal affect Attitude: cooperative Thought process: Normal thought process present Thought content: Normal thought content present Insight: Fair insight present (Psych) Judgement: Fair judgement present (Psych) Results AMB Urinalysis, Automated UA Leukoctes 0 Bhupinder/uL Last Edit by IZABELA Sanders on 07/21/25 09:04 UA Nitrite Negative Last Edit by IZABELA Sanders on 07/21/25 09:04 UA Urobilinogen 3.5 mg/dL Last Edit by IZABELA Sanders on 07/21/25 09:0 4 UA Protein 15 mg/dL Last Edit by Winter [facility] on 07/21/25 09:04 UA pH 5.5 Last Edit by Winter Handley [facility] on 07/21/25 09:04 UA Blood 10 Hany/uL Last Edit by IZABELA Sanders on 07/21/25 09:04 UA Specific Wiggins 1.030 Last Edit by Winter Handley, [facility] on 07/21/25 09: 04 UA Ketone Negative Last Edit by Winter Handley [facility] on 07/21/25 09:04 UA Bilirubin 0 mg/dL Last Edit by Winter Handley [facility] on 07/21/25 09:04 UA Glucose 0 mg/dL Last Edit by Winter Handley [facility] on 07/21/25 09:04 Results Reviewed Results Reviewed: Laboratory Last Values Urine pH (Auto) 5.5 07/21/25 09:03 Specific Wiggins (Auto) 1.030 07/21/25 09:03 Urine Protein (Auto) 15 mg/dL 07/21/25 09:03 Glucose (UA)(Auto) 0 mg/dL 07/21/25 09:03 Urine Ketones (Auto) Negative 07/21/25 09:03 Urine Blood (Auto) 10 Hany/uL 07/21/25 09:03 Urine Nitrite (Auto) Negative 07/21/25 09:03 Urine Bilirubin (Auto) 0 mg/dL 07/21/25 09:03 Urine Urobilinogen (Auto) 3.5 mg/dL 07/21/25 09:03 Leukocyte Esterase (Auto) 0 Bhupinder/uL 07/21/25 09:03 Date of Service: 06/15/25 Procedure(s): US abdomen complete Findings: The visualized pancreas is normal. The aorta and inferior vena cava are normal caliber. The liver is normal in size with increase of echogenicity. There is no intrahepatic bile duct dilatation. The common duct is 2.0 mm in diameter. No gallstones in the gallbladder. Adenomyomatosis. There is no sonographic Washburn sign. The main portal vein is antegrade. The right kidney is 10.2 cm in length. The left kidney is 12.4 cm in length. The spleen is normal. No ascites. IMPRESSION: Hepatic steatosis. Adenomyomatosis of the gallbladder. Assessment & Plan Assessment & Plan (1) Nephrolithiasis: Code(s): N20.0 - Calculus of kidney Category: Medical (2) Testicular pain, left: Code(s): N50.812 - Left testicular pain Category: Medical Plan In office urinalysis results reviewed with the patient today; as noted above. Recent abdominal ultrasound results reviewed with the patient today; as noted above. We did discuss importance of safe sex and protection. Will continue with surveillance monitoring. He currently denies any bothersome urinary issues or concerns. We did discussed worsening symptoms. Will obtain renal ultrasound in 1 year. We did discussed proper hygiene. We discussed importance of adequate hydration relation to nephrolithiasis as well as overall health and well-being. Follow-up in 1 year with imaging; or sooner with any issues, concerns, and or questions. Orders: Orders Urine Cytology Today R31.29 - Other microscopic hematuria AMB Urinalysis Automated Today Z13.9 - Encounter for screening, unspecified US scrotum Today N50.812 - Left testicular pain Patient Instructions: The patient had an opportunity to ask questions regarding the treatment plan. All questions were answered. Physical exam, labs, and imaging were discussed and reviewed in detail. As well as risks, benefits, and discussion of treatment choices. No major barriers to understanding were identified. The patient expressed understanding and agreement with the above treatment plan. The patient was made aware they should contact our office by phone for worsening of their current condition, the appearance of new symptoms, or with any questions or concerns. Compliance is encouraged with any medications and follow up testing that is ordered. It is a privilege to be allowed the opportunity to participate in? your urological care.? Again, if you have any questions or concerns If you have any questions or concerns please do not hesitate to contact me. The office is [phone]. This note is constructed using voice recognition software. While every effort has been made to ensure accuracy pull over errors may have been included. Yours sincerely, IRENE Love Coding Level of Care Code Est Pt Level 3 (49296) Diagnoses Nephrolithiasis N20.0 Testicular pain, left N50.812
--- OUTSIDE RECORDS SUMMARY | 2025-07-21 09:20 | XMS_ITS | Clinical Summary ---
Author Organization [facility] [employer] [facility] ity Address [address] [place] [address] Care Team Providers Care District Leader Name Role Phone Preeti Acosta MD Primary Care Provider [phone] Social History Tobacco Use Types Packs/Day Years [...] 12/12/2023 Social Influencers of Health Screening 12/12/2023 Depression Screening 11/17/2024 COVID-19 Vaccine ( - 2023-2 5 season) 2025 Influenza Vaccine (#1) 2025 HIB Vaccines Aged [...] age to complete this topic Care Teams District Leader Relationship Specialty Start Date End Date Preeti Acosta MD [address] [place] [address] , [address] [place] [address] Physician Associ D/B/A: [facility] [place] PCP - General 11/01/22
== END 2025-07-21 09:34 | disposition home or self-care (01) ==
LOC: HO.HUSH 08:48
PROVIDERS: PCP Internal Medicine; Visit Provider Nurse Practitioner Family
DX: N20.0 Calculus of kidney (principal); N50.812 Left testicular pain; Z13.9 Encounter for screening, unspecified
CPT/HCPCS: 99213

== ENCOUNTER 2025-08-12 10:31 | Outpatient (AMB) | payer OTHER, SELFPAY ==
[2025-08-12 10:42] VITALS: BP 122/84; PULSE 88; O2SAT 96; BMI 26.8
--- NOTE | 2025-08-12 10:42 | MHC.OFFVIS ---
Vital Signs 08/12/25 10:42 Height 5 ft 8 in Weight 176 lb BMI 26.8 BP 122/84 Blood Pressure Location Rt brachial Position Sitting Pulse 88 Pulse Source Pulse Oximeter Pulse Oximetry (%) 96 Oxygen Delivery Method Room Air Intake Visit Reasons: 3 mo f/u Intake Note: Established patient for GERD mgmt. CC; C.O persistence of bloating + gas despite current therapies. Pt does report that the simethicone is still helpful with relieving sx; however, he finds that he is taking the medication constantly. Pt denies any additional sx or concerns at this time. Email Marketing Intern Required: Yes Email Marketing Intern Services: Email Marketing Intern Offered & Declined Accompanied by: Self / Same As Patient Allergies No Known Allergies (No Known Allergies*) Allergy (Verified 08/12/25 10:42) HPI HPI 3 mo f/u: Details: LAST VISIT Constipation by delayed colonic transit Abdominal bloating Plan Patient reports abdominal bloating postprandially sometimes does not matter what he eats. Occasional epigastric pain more to his left upper quadrant. Will check lipase and liver panel. He can take simethicone as needed. Continue pantoprazole as it is helping him to control his reflux. Avoid dietary triggers and late night snacking. Staying upright for minimum 3 hours after meals discussed with patient. Patient will take senna 2 tablets every evening. Patient will call our office if he will continue to have symptoms. Follow-up in 3 months, sooner on as needed basis. He is agreeable to this plan and verbalizes understanding of instructions. He was given the opportunity to ask questions and all questions answered. ? Thank you for allowing me to participate in his care Orders Lipase Today R10.9 Liver Panel Today R74.01 US abdomen complete Today R10.9 New simethicone (Gas Relief (simethicone)) 125 mg PO TID-QID PRN 120 caps 2RF abdominal distention R14.0 Changed Changed From sennosides (senna) 8.6 mg PO BEDTIME PRN constipation Changed To sennosides (senna) 17.2 mg (2 x 8.6 mg) PO BEDTIME 60 tabs 2RF constipation Refilled pantoprazole take one tablet half an hour before breakfast 40 mg PO DAILY 90 tabs 2RF K21.9 TODAY'S VISIT Patient is here today for follow-up. Patient reports that he has been feeling worse. Acid reflux has been getting worse to the point that sometimes no matter what he eats he will have epigastric pain and bloating. Patient is taking pantoprazole, however does not feel like it is helping. Patient reports that he is moving his bowels better, however he has to take senna as needed. Patient denies nausea or vomiting. Not any localized pain. Pain throughout his abdomen. Sometimes patient reports pain in upper abdomen with bending. Patient reports occasional dyspepsia without dysphagia or odynophagia. Denies melena, hematochezia, unintentional weight loss or ribbon like stools. [facility] Medical History (Updated 08/12/25 @ 20:45 by Trinidad Tripp [facility]) GERD (gastroesophageal reflux disease) Bronchial asthma Nephrolithiasis Lung nodule Kidney stone Dyspnea on exertion Post covid-19 condition, unspecified Dizziness Hypovitaminosis D Abdominal bloating Dyslipidemia Constipation by delayed colonic transit COVID-19 Surgical History History of esophagogastroduodenoscopy (EGD) History of umbilical hernia repair Family History Father Diabetes Hypertension Mother Hypertension Diabetes Paternal Grandfather Lung cancer Colon cancer Social History Housing: House Alcohol intake: never Patient Tobacco Use Status: Former Tobacco user Tobacco use type: Cigarette e-Cigarette/Vaping Use: Never Used Second Hand Smoke Exposure: No service: No Current occupational status: employed Current occupational exposures/hazards: No Cognitive needs: No Hearing needs: No Vision needs: No Review of Systems Const Denies weight gain and Denies weight loss ENT Reports no additional complaints, Denies dysphagia and Denies odynophagia Card Reports no additional complaints Resp Reports no additional complaints and Reports cough (dry) GI Reports abdominal pain (Epigastric), Denies belching, Denies melena, Reports bloating, Denies change in bowel habits, Reports constipation, Denies dysphagia, Denies excessive flatus, Denies dyspepsia, Reports heartburn, Denies diarrhea, Denies loose stools, Denies nausea, Denies odynophagia and Denies vomiting Reports no additional complaints Musc Reports no additional complaints Neuro Reports no additional complaints Psych Reports no additional complaints Endo Reports no additional complaints Physical Exam Vital Signs: Last Vital Signs Pulse 88 08/12/25 10:42 BP 122/84 08/12/25 10:42 Pulse Ox 96 08/12/25 10:42 Oxygen Delivery Method Room Air 08/12/25 10:42 BMI result Body Mass Index 26.8 Const General: healthy appearing, no acute distress and well developed Nutritional Appearance: well nourished Orientation/consciousness: patient oriented x3 Resp Effort & Inspection: normal respiratory effort, able to speak in complete sentences, no tracheal deviation and symmetric chest movement Auscultation: clear to auscultation bilaterally Cardio Rate: regular rate GI Inspection: Yes normal to inspection and No distended Palpation (GI): Soft to palpation, not firm, nontender and No hepatosplenomegaly present Auscultation: normal bowel sounds General: Yes no CVA tenderness Back/Spine/Pelvis Back: no CVA tenderness Skin General skin exam: elasticity normal, turgor normal and dry skin Neuro General: patient oriented x3 Psych Appearance: grossly normal Mental Status: mental status grossly normal Results Reviewed Results Reviewed: ULTRASOUND OF ABDOMEN AND PELVIS Findings: The visualized pancreas is normal. The aorta and inferior vena cava are normal caliber. The liver is normal in size with increase of echogenicity. There is no intrahepatic bile duct dilatation. The common duct is 2.0 mm in diameter. No gallstones in the gallbladder. Adenomyomatosis. There is no sonographic Washburn sign. The main portal vein is antegrade. The right kidney is 10.2 cm in length. The left kidney is 12.4 cm in length. The spleen is normal. No ascites. IMPRESSION: Hepatic steatosis. Adenomyomatosis of the gallbladder. Laboratory Tests 05/24/25 11:52 Total Bilirubin 0.4 Direct Bilirubin 0.1 AST 26 ALT 33 Lipase 29 Assessment & Plan Assessment & Plan (1) Constipation by delayed colonic transit: Code(s): K59.01 - Slow transit constipation Category: Medical (2) Abdominal bloating: Code(s): R14.0 - Abdominal distension (gaseous) Category: Medical (3) GERD (gastroesophageal reflux disease): Code(s): K21.9 - Gastro-esophageal reflux disease without esophagitis Category: Medical Qualifiers: Esophagitis presence: esophagitis presence not specified Qualified Code(s): K21.9 - Gastro-esophageal reflux disease without esophagitis (4) Postprandial epigastric pain: Code(s): R10.13 - Epigastric pain Plan Patient will be sent for upper endoscopy. Message and order placed in the computer. Patient will stop pantoprazole and start Nexium. Avoid dietary triggers in late night snacking. Staying upright for minimum 3 hours after meals discussed with patient. Patient will continue senna. Increase fluid intake and activity to promote better bowel motility. Patient will follow-up in our office after the procedure, sooner on as needed basis. He is agreeable to this plan and verbalizes understanding of instructions. He was given the opportunity to ask questions and all questions answered. Thank you for allowing me to participate in his care Orders: Referrals GI Procedure Notification K21.9 - Gastro-esophageal reflux disease without esophagitis Medications: New esomeprazole magnesium (Nexium) 40 mg PO DAILY 30 caps 3RF K21.9 - Gastro-esophageal reflux disease without esophagitis Refilled sennosides (senna) 17.2 mg (2 x 8.6 mg) PO BEDTIME 60 tabs 2RF constipation Discontinued pantoprazole take one tablet half an hour before breakfast Discontinued Reason: Doctor's Order 40 mg PO DAILY 90 tabs 2RF K21.9 - Gastro-esophageal reflux disease without esophagitis Coding Level of Care Code Est Pt Level 4 (44196) Complex EM visit Add On G2211 Diagnoses Constipation by delayed colonic transit K59.01 Abdominal bloating R14.0 Gastroesophageal reflux disease, unspecified whether esophagitis present K21.9 Esophagitis presence: esophagitis presence not specified Postprandial epigastric pain R10.13 Time Spent (min) 35 Comment 25 minute spent with patient and additional 10 minutes spent reviewing his records
--- OUTSIDE RECORDS SUMMARY | 2025-08-12 12:00 | XMS_ITS | Clinical Summary ---
Author Organization [facility] [employer] [facility] ity Address [address] [place] [address] Care Team Providers Care Breastfeeding Program Coordinator Name Role Phone Preeti Acosta MD Primary Care Provider Social History Tobacco Use Types Packs/Day Years [...] 5 season) 2025 Influenza Vaccine (#1) 2025 RSV Immunization Adult Patie nts (1 - 1-dose 75+ series) 2061 HIB Vaccines Aged Out No longer eligi [...] age to complete this topic Care Teams Breastfeeding Program Coordinator Relationship Specialty Start Date End Date Preeti Acosta MD [address] [place] [address] , [address] [facility] Physician Associ D/B/A: [facility] ABAD [place] PCP - General 11/01/22
== END 2025-08-12 11:13 | disposition home or self-care (01) ==
PROVIDERS: PCP Internal Medicine; Visit Provider Nurse Practitioner Family
DX: K59.01 Slow transit constipation (principal); R14.0 Abdominal distension (gaseous); K21.9 Gastro-esophageal reflux disease without esophagitis; R10.13 Epigastric pain
CPT/HCPCS: 99214

== ENCOUNTER 2025-09-02 11:22 | Day surgery (SDC) | payer OTHER, SELFPAY ==
--- OUTSIDE RECORDS SUMMARY | 2025-08-16 13:25 | XMS_ITS | Clinical Summary ---
Author Organization [facility] [employer] [facility] ity Address [address] [place] [address] Care Team Providers Care Toddler Teacher Name Role Phone Preeti Acosta MD Primary Care Provider [phone] Social History Tobacco Use Types Packs/Day Years [...] age to complete this topic Care Teams Toddler Teacher Relationship Specialty Start Date End Date Preeti Acosta MD [address] [place] [address] , [address] [facility] Physician Associ D/B/A: [facility] ABAD [place] PCP - General 11/01/22
[2025-08-31 09:00] VITALS: BMI 26.8
--- NOTE | 2025-08-31 09:32 | HO.ANESPROP2 ---
Documented by User: Carrie Woodard NP 08/31/25 09:36 HPI - Anesthesia Eval Consult details Narrative: 40yo M for Upper Endoscopy Hx VATS: 11/20/2022 Dr. 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 Chest x-ray shows a small linear scar in the left lower lobe which represents the scar from surgery, Explained to the patient. About this abnormal finding. No further action needed PMFSH Active Problems Active Problems: All Active Problems Lumbar pain (Acute) Pure hypercholesterolemia (Acute) Skin lesion (Acute) Obstructive sleep apnea (Acute) Daytime sleepiness (Acute) Orchitis and epididymitis (Acute) Gynecomastia, male (Acute) Testicular pain, left (Acute) Breast pain, left (Acute) Shortness of breath (Acute) Physical exam (Acute) Dizziness (Acute) Abdominal bloating (Acute) GERD (gastroesophageal reflux disease) (Acute) Bronchial asthma (Acute) Nephrolithiasis (Acute) Lung nodule (Acute) Dyspnea on exertion (Acute) Post covid-19 condition, unspecified (Acute) Hypovitaminosis D (Acute) Dyslipidemia (Acute) Constipation by delayed colonic transit (Acute) Past Medical History Medical History KHADRA (obstructive sleep apnea) GERD (gastroesophageal reflux disease) Bronchial asthma Nephrolithiasis Lung nodule Dyspnea on exertion Post covid-19 condition, unspecified Hypovitaminosis D Dyslipidemia Constipation by delayed colonic transit Family History Family History Father Diabetes Hypertension Mother Hypertension Diabetes Paternal Grandfather Lung cancer Colon cancer Surgical History Surgical History History of video-assisted thoracoscopic surgery (VATS) H/O colonoscopy History of esophagogastroduodenoscopy (EGD) History of umbilical hernia repair History of Problems with Anesthesia: No Social History Social History Housing: House Are you a primary personal care home administrator to a significant other at home: No Do you presently have visiting nurse or other home services: No Alcohol intake: never Patient Tobacco Use Status: Former Tobacco user Tobacco use type: Cigarette e-Cigarette/Vaping Use: Never Used Second Hand Smoke Exposure: No Substance Use Frequency: Daily Have you been hit, kicked, punched, or otherwise hurt by someone within the past year? If so, by whom?: No Are you DNR?: No Advance Directives: No Advance Directives Information Provided: Yes Poor oral hygiene: No service: No Current occupational status: employed Current occupational exposures/hazards: No Cognitive needs: No Hearing needs: No Vision needs: No Meds Allergies Allergy/AdvReac Type Severity Reaction Status Date / Time No Known Allergies (No Known Allergy Verified 09/02/25 11:28 Allergies*) Exam Height,Weight and Vital Signs: Height 5 ft 8 in Weight 79.832 kg Assessment and Plan Assessment Anesthesia Assessment: Chart Reviewed Final Anesthetic Review History of Problems with Anesthesia: No Documented by User: Talya Owens MD 09/02/25 12:05 PMF Past Medical History Medical History KHADRA (obstructive sleep apnea) GERD (gastroesophageal reflux disease) Bronchial asthma Nephrolithiasis Lung nodule Dyspnea on exertion Post covid-19 condition, unspecified Hypovitaminosis D Dyslipidemia Constipation by delayed colonic transit Family History Family History Father Diabetes Hypertension Mother Hypertension Diabetes Paternal Grandfather Lung cancer Colon cancer Family history of problems with anesthesia: No Surgical History Surgical History History of video-assisted thoracoscopic surgery (VATS) H/O colonoscopy History of esophagogastroduodenoscopy (EGD) History of umbilical hernia repair Social History Social History Housing: House Are you a primary personal care home administrator to a significant other at home: No Do you presently have visiting nurse or other home services: No Alcohol intake: never Patient Tobacco Use Status: Former Tobacco user Tobacco use type: Cigarette e-Cigarette/Vaping Use: Never Used Second Hand Smoke Exposure: No Substance Use Frequency: Daily Have you been hit, kicked, punched, or otherwise hurt by someone within the past year? If so, by whom?: No Are you DNR?: No Advance Directives: No Advance Directives Information Provided: Yes Poor oral hygiene: No service: No Current occupational status: employed Current occupational exposures/hazards: No Cognitive needs: No Hearing needs: No Vision needs: No Meds Allergies Allergy/AdvReac Type Severity Reaction Status Date / Time No Known Allergies (No Known Allergy Verified 09/02/25 11:28 Allergies*) Exam Airway Mallampati Class: II TM Dist: >3cm Neck ROM: Full Heart: rrr Lungs: cta Assessment and Plan Assessment Anesthesia Assessment: Anesthesia Plan Discussed Final Anesthetic Review Family History of Problems with Anesthesia: No NPO: Yes ASA Class: II Final Preanesthetic Review: No Changes in Pt Med Stat, Meds/Allgs Chart Reviewed and Consent Obtained/Reviewed Patient Risk: Intermediate Procedure Risk: Intermediate Anesthetic Plan Anesthetic Plan: MAC: Disposition: Standard PACU
--- NOTE | 2025-09-02 10:51 | MHC.SHP ---
Pre-Procedural Eval Section A - 24 Hr Update-Section A only Date of Service: 09/02/25 The patient is an INPATIENT: No The patient has been examined within 24 hours of the surgical procedure. The History & Physical has been completed within 30 days and I have reviewed it.: Yes Section B - Complete if H&P > 30 days Chief Complaint: gerd Allergies: Allergies Allergy/AdvReac Type Severity Reaction Status Date / Time No Known Allergies (No Known Allergy Verified 08/12/25 10:42 Allergies*) Plan Diagnosis/Plan: Unchanged I have reviewed the history and physical and performed a pertinent physical examination on my patient. No changes have occurred unless specified. Time Spent With Patient Time: Total time managing care of this patient today ____ minutes.
[2025-09-02] MEDS: Lactated Ringers 1,000 ML 100 ML IVCONT (11:39)
[2025-09-02 11:48] VITALS: BP 126/86; PULSE 83; RESP 18; TEMP 36.9; O2SAT 96
[2025-09-02 11:50] VITALS: BMI 27.8
--- NOTE | 2025-09-02 12:53 | P.OP_ITS ---
Operative Note Operative Note Date of Service: 09/02/25 Narrative: Procedure: Esophagogastroduodenoscopy Endoscopist: Aline Banks MD Indication: GERD, bloating Anesthesia Provider: Brigitte Norwood MD Anesthesia Type: MAC ?? EGD Procedure:?? The procedure, indications, preparation and potential complications were reviewed with the patient, who indicated understanding and gave written informed consent to proceed. A physical exam was performed. The endoscope was introduced through the mouth, and advanced to the second part of duodenum. The mucosa was carefully examined on slow withdrawal of the endoscope. The patient tolerated the procedure well. There were no immediate complications.? ? EGD Findings:? * Esophagus:? Normal mucosa noted in the entire esophagus. The Z line was at 40 cm. Cold forceps biopsies were obtained from GE junction. * Stomach:? Erythema and scant heme was seen in body and antrum. Retroflexion was performed in the cardia. Cold forceps gastric biopsies were taken from body and antrum to rule out H Pylori infection. * Duodenum:? Normal mucosa was noted in the whole of the examined duodenum. Cold forceps biopsies were taken from duodenal bulb and second portion of the duodenum to rule out celiac sprue. ? EGD Impressions:? * Normal esophagus (biopsy) * Gastritis (biopsy) * Normal duodenum (biopsy) ?? Recommendations:?? * Follow biopsy results. Our office will call or send a letter with results within 7-10 days. * Continue PPI therapy. * If H pylori +, patient will be prescribed eradication therapy followed by test of cure. * Avoid NSAIDs, smoking and alcohol. Above has been reviewed with the patient.
[2025-09-02 13:05] VITALS: BP 111/66; PULSE 88; RESP 17; TEMP 36.4; O2SAT 98
[2025-09-02 13:10] VITALS: BP 110/72; PULSE 89; RESP 12; O2SAT 93
[2025-09-02 13:21] VITALS: BP 126/83; PULSE 88; RESP 17; TEMP 36.4; O2SAT 96
== END 2025-09-02 13:56 | disposition home or self-care (01) ==
PROVIDERS: PCP Internal Medicine; Visit Provider Internal Medicine
PROC: 0DJ08ZZ Inspection of Upper Intestinal Tract, Via Natural or Artificial Opening Endoscopic (ICD-10-PCS; CPT 43235; principal; 2025-09-02 13:30)
DX: K21.9 Gastro-esophageal reflux disease without esophagitis (principal); R10.13 Epigastric pain; R14.0 Abdominal distension (gaseous); K59.01 Slow transit constipation; K29.70 Gastritis, unspecified, without bleeding; B96.89 Other specified bacterial agents as the cause of diseases classified elsewhere
CPT/HCPCS: 43239; 88305; 88313; 88342; J1100; J2003; J2250; J2704

== ENCOUNTER → 2025-09-02 11:22 | Outpatient (BNV) | payer OTHER, SELFPAY | PROVIDERS: PCP Internal Medicine; Visit Provider Internal Medicine | DX: K21.9 Gastro-esophageal reflux disease without esophagitis (principal); K29.70 Gastritis, unspecified, without bleeding | CPT/HCPCS: 43239 ==

== ENCOUNTER 2025-11-09 08:01 | Outpatient (AMB) | payer OTHER, SELFPAY ==
--- NOTE | 2025-11-09 08:09 | A.OFFVIS_ITS ---
Vital Signs 11/09/25 08:11 Height 5 ft 8 in Weight 176 lb BMI 26.8 BP 118/84 Blood Pressure Location Rt brachial Position Sitting Pulse 92 Pulse Source Pulse Oximeter Pulse Oximetry (%) 97 Oxygen Delivery Method Room Air Intake Visit Reasons: R/S x1 - provider illness. S/P EGD Intake Note: Est pt for mgmt of GERD. CC: C/O intermittent gas and GERD persistence which seems to primarily bother him at night. No additional sx or concerns. [employer] Required: No Accompanied by: Self / Same As Patient Allergies No Known Allergies (No Known Allergies*) Allergy (Verified 09/02/25 11:28) HPI HPI R/S x1 - provider illness. S/P EGD: Details: LAST VISIT: Constipation by delayed colonic transit Abdominal bloating GERD (gastroesophageal reflux disease) Postprandial epigastric pain Plan Patient will be sent for upper endoscopy. Message and order placed in the computer. Patient will stop pantoprazole and start Nexium. Avoid dietary triggers in late night snacking. Staying upright for minimum 3 hours after meals discussed with patient. Patient will continue senna. Increase fluid intake and activity to promote better bowel motility. Patient will follow-up in our office after the procedure, sooner on as needed basis. He is agreeable to this plan and verbalizes understanding of instructions. He was given the opportunity to ask questions and all questions answered. ? Thank you for allowing me to participate in his care Referrals GI Procedure Notification K21.9 New esomeprazole magnesium (Nexium) 40 mg PO DAILY 30 caps 3RF K21.9 Refilled sennosides (senna) 17.2 mg (2 x 8.6 mg) PO BEDTIME 60 tabs 2RF constipation Discontinued pantoprazole take one tablet half an hour before breakfast Discontinued Reason: Doctor's Order 40 mg PO DAILY 90 tabs 2RF K21.9 ENDOSCOPY: EGD Findings:? * Esophagus:? Normal mucosa noted in the entire esophagus. The Z line was at 40 cm. Cold forceps biopsies were obtained from GE junction. * Stomach:? Erythema and scant heme was seen in body and antrum. Retroflexion was performed in the cardia. Cold forceps gastric biopsies were taken from body and antrum to rule out H Pylori infection. * Duodenum:? Normal mucosa was noted in the whole of the examined duodenum. Cold forceps biopsies were taken from duodenal bulb and second portion of the duodenum to rule out celiac sprue. ? EGD Impressions:? * Normal esophagus (biopsy) * Gastritis (biopsy) * Normal duodenum (biopsy)?? Recommendations:?? * Follow biopsy results. Our office will call or send a letter with results within 7-10 days. * Continue PPI therapy. * If H pylori +, patient will be prescribed eradication therapy followed by test of cure. * Avoid NSAIDs, smoking and alcohol. PATHOLOGY: Addendum Addendum #1 Immunostains for H. pylori on B and C are negative. Additional level with AB/PAS on D is negative for intestinal metaplasia. Controls stain appropriately. Electronically Signed By: Izabela Mclean 09/07/25 1129 Diagnosis A. Duodenum, biopsy: Duodenal mucosa with preserved villi and no specific change. B. Gastric antrum, biopsy: Gastric antral mucosa with mild reactive changes and focal minimal chronic inactive inflammation; negative for intestinal metaplasia and dysplasia. C. Gastric body, biopsy: Gastric body mucosa with focal minimal chronic inactive inflammation; negative for intestinal metaplasia and dysplasia. D. Esophagogastric junction, biopsy: Squamous mucosa with mild hyperplasia, minimal spongiosis, and rare intraepithelial eosinophils (up to 1 per high-power field) and columnar mucosa with mild chronic inflammation, consistent with esophagitis; no intestinal metaplasia seen on initial levels; negative for dysplasia. Comment: (B and C): Immunostains for H. pylori pending; addendum to follow. (D): Additional level with AB/PAS stain pending; addendum to follow TODAY'S VISIT Patient is here today for follow-up and to discuss upper endoscopy results. Patient denies any ill effects from anesthesia or procedure itself. Patient reports to be feeling well. Still takes Nexium in the morning, reports his symptoms of acid reflux have suppressed. However patient does report abdominal bloating during the night and when he gets up in the morning. Patient does admit that sometimes he will eat late at night. Patient states that he takes simethicone as needed. Patient reports that he takes senna as needed. Bowel movements every morning, however he feels like he does not empty his bowels completely. Denies melena, hematochezia, unintentional weight loss or ribbon like stools. Patient denies any dyspepsia, dysphagia or odynophagia. [facility] Medical History KHADRA (obstructive sleep apnea) GERD (gastroesophageal reflux disease) Bronchial asthma Nephrolithiasis Lung nodule Dyspnea on exertion Post covid-19 condition, unspecified Hypovitaminosis D Dyslipidemia Constipation by delayed colonic transit Surgical History History of video-assisted thoracoscopic surgery (VATS) H/O colonoscopy History of esophagogastroduodenoscopy (EGD) History of umbilical hernia repair Family History Father Diabetes Hypertension Mother Hypertension Diabetes Paternal Grandfather Lung cancer Colon cancer Social History Housing: House Are you a primary property caretaker to a significant other at home: No Do you presently have visiting nurse or other home services: No Alcohol intake: never Patient Tobacco Use Status: Former Tobacco user Tobacco use type: Cigarette e-Cigarette/Vaping Use: Never Used Second Hand Smoke Exposure: No service: No Current occupational status: employed Current occupational exposures/hazards: No Cognitive needs: No Hearing needs: No Vision needs: No Review of Systems Const Denies weight gain and Denies weight loss ENT Reports no additional complaints, Denies dysphagia and Denies odynophagia Card Reports no additional complaints Resp Reports no additional complaints and Reports cough (dry) GI Reports abdominal pain (Epigastric), Denies belching, Denies melena, Reports bloating, Denies change in bowel habits, Reports constipation, Denies dysphagia, Denies excessive flatus, Denies dyspepsia, Reports heartburn, Denies diarrhea, Denies loose stools, Denies nausea, Denies odynophagia and Denies vomiting Reports no additional complaints Musc Reports no additional complaints Neuro Reports no additional complaints Psych Reports no additional complaints Endo Reports no additional complaints Physical Exam Vital Signs: Last Vital Signs Pulse 92 11/09/25 08:11 BP 118/84 11/09/25 08:11 Pulse Ox 97 11/09/25 08:11 Oxygen Delivery Method Room Air 11/09/25 08:11 BMI result Body Mass Index 26.8 Const General: healthy appearing, no acute distress and well developed Nutritional Appearance: well nourished Orientation/consciousness: patient oriented x3 Resp Effort & Inspection: normal respiratory effort, able to speak in complete sentences, no tracheal deviation and symmetric chest movement Auscultation: clear to auscultation bilaterally Cardio Rate: regular rate GI Inspection: Yes normal to inspection and No distended Palpation (GI): Soft to palpation, not firm, nontender and No hepatosplenomegaly present Auscultation: normal bowel sounds General: Yes no CVA tenderness Back/Spine/Pelvis Back: no CVA tenderness Skin General skin exam: elasticity normal, turgor normal and dry skin Neuro General: patient oriented x3 Psych Appearance: grossly normal Mental Status: mental status grossly normal Assessment & Plan Assessment & Plan (1) Constipation by delayed colonic transit: Code(s): K59.01 - Slow transit constipation Category: Medical (2) Abdominal bloating: Code(s): R14.0 - Abdominal distension (gaseous) Category: Medical (3) GERD (gastroesophageal reflux disease): Code(s): K21.9 - Gastro-esophageal reflux disease without esophagitis Category: Medical Qualifiers: Esophagitis presence: esophagitis presence not specified Qualified Code(s): K21.9 - Gastro-esophageal reflux disease without esophagitis (4) Postprandial epigastric pain: Code(s): R10.13 - Epigastric pain Plan Upper endoscopy results discussed with patient. Patient will continue taking Nexium in the morning. Avoid dietary triggers and late night snacking. Staying upright for minimum 3 hours after meals discussed with patient. Patient will try to take senna daily and see if he can have a bowel movement daily. Increase fluid intake and activity to promote bowel motility. Patient will follow-up in 6 months, sooner on as needed basis. Patient is agreeable to plan of care and verbalizes understanding of instructions. He was given the opportunity to ask questions and all questions answered Thank you for allowing me to participate in his care Coding Level of Care Code Est Pt Level 4 (36096) Add On Problem Visit Only Diagnoses Constipation by delayed colonic transit K59.01 Abdominal bloating R14.0 Gastroesophageal reflux disease, unspecified whether esophagitis present K21.9 Esophagitis presence: esophagitis presence not specified Postprandial epigastric pain R10.13 Time Spent (min) 35 Comment 25 minutes spent with patient and additional 10 minutes spent reviewing his records
[2025-11-09 08:11] VITALS: BP 118/84; PULSE 92; O2SAT 97; BMI 26.8
== END 2025-11-09 08:24 | disposition home or self-care (01) ==
LOC: HO.HGI 08:01
PROVIDERS: PCP Internal Medicine; Visit Provider Nurse Practitioner Family
DX: K59.01 Slow transit constipation (principal); R14.0 Abdominal distension (gaseous); K21.9 Gastro-esophageal reflux disease without esophagitis; R10.13 Epigastric pain
CPT/HCPCS: 99214